=== PATIENT | female | born 1950 | race Caucasian/White ===

== ENCOUNTER → 2016-03-06 | Outpatient (CLI) | payer MEDICARE ==
[2015-10-05 23:40] VITALS: BP 142/64
[~2016-03-06] MED LIST: ASPI81TA2 PO; CALC500T27 PO; CHOL10003 PO; CITA10TA4 PO; CITA20TA9 PO; CRESTOR10 MG PO; CRESTOR20 MG PO; FERR-26 PO; FLUT16SP2 NS; FLUT9.9S NS; HYDR-2666 PO; HYDR-971 PO; IBUP-1060 PO; LISI-338 PO; LISI40TA PO; LORA10CA PO; LORA10TA68 PO; MULT1TAB52 PO; NAPR375T PO; NAPR500T PO; NIAC500T PO; PROAIR HFA8.5 GM IH; ZINC50TA33 PO
--- NOTE | 2016-03-06 13:34 | KCIC ---
Bilateral digital screening mammograms with CAD: HISTORY Routine screening. COMPARISON Comparison is made to previous studies dated 02/21/2014 and 01/13/2013. FINDINGS Breast density category B. The skin and nipples show no abnormalities. No abnormal lymph nodes are seen in the axilla. The breast parenchyma shows scattered fibroglandular density. There continues to be a small circumscribed nodule in the left breast at approximately the 1 o'clock B position and seen best on CC view. This is unchanged. There are no new dominant masses, suspicious calcifications or architectural distortions. IMPRESSION No evidence of malignancy. Recommend routine annual mammographic screening. This study was interpreted with the benefit of Computerized Aided Detection (CAD). Mammography is not 100% sensitive in detecting breast cancer. Therefore, a self breast exam and a clinical breast exam are very important. A negative mammogram does not negate a clinically suspicious finding and should not result in a delay in biopsying a clinically suspicious abnormality. BI-RADS category 2: Benign. This patient's information has been entered into a reminder system for the patient to be notified with the results of this examination and a target date for her next mammograms. Electronically signed by: Coreen José MD (Mar 06, 2016 13:31:47)
--- NOTE | 2016-03-06 16:11 | KCIC ---
PROCEDURE DEXA scan 03/06/2016 HISTORY Postmenopausal female. Risk factors for osteoporosis. TECHNIQUE DEXA the lumbar spine and left hip was performed. FINDINGS The mean bone mineral density of the lumbar spine is 1.491 grams/centimeters squared. This corresponds to a T-score 4.0. This is within normal limits. The mean bone mineral density of the left hip is 1.107 grams/centimeters squared. This corresponds to a T-score of 1.4. This is within normal limits. IMPRESSION The patient's mean bone mineral densities are within normal limits. According to the world health organization (WHO): Normal: T score at or above -1 Osteopenia: T score between -1 and -2.5 Osteoporosis: T score at or below -2.5 Electronically signed by: Kj Calero MD (Mar 06, 2016 16:09:50)
== END | disposition home or self-care (01) ==
LOC: KCIC DEXA 10:42
PROVIDERS: ATTEND Family Medicine
DX: Z12.31 Encounter for screening mammogram for malignant neoplasm of breast (principal); N63 Unspecified lump in breast; Z13.820 Encounter for screening for osteoporosis; N95.9 Unspecified menopausal and perimenopausal disorder
CPT/HCPCS: 77052; 77080; G0202; 77067

== ENCOUNTER 2017-02-10 22:07 | Inpatient (IN) | payer MEDICARE ==
[~2017-02-10] VITALS: Ht 165.1 cm; Wt 90.7 kg
[~2017-02-10 22:07] MED LIST changes: +ASPI-630 PO; -ASPI81TA2 PO; -CALC500T27 PO; +CALC500T30 PO; -HYDR-2666 PO; +HYDR-2758 PO; +NAPR-683 PO; -NAPR500T PO
[2017-02-10 22:52] LABS: BASO % 1 % (0-3); EOS % 5 % (0-3); HEMATOCRIT 42.9 % (36.0-47.0); HEMOGLOBIN 14.1 g/dL (12.0-15.5); LYMPH # 1.3 x10^3/uL (1.0-4.8); LYMPH % 22 % (24-48); MEAN CORPUSCULAR HEMOGLOBIN 30 pg (25-35); MEAN CORPUSCULAR HGB CONC 33 g/dL (31-37); MEAN CORPUSCULAR VOLUME 90 fL (79-100); MONO % 9 % (0-9); NEUT % 63 % (31-73); PLATELET COUNT 187 x10^3/uL (140-400); RED BLOOD COUNT 4.78 x10^6/uL (3.50-5.40); WHITE BLOOD COUNT 6.1 x10^3/uL (4.0-11.0)
[2017-02-10] MEDS ORDERED: MECLIZINE HCL 12.5 MG TABLET. PO ONE (23:00)
[2017-02-10] MEDS ORDERED: ONDANSETRON PF 4 MG/2 ML VIAL. IV ONE (23:00)
--- NOTE | 2017-02-10 23:10 | EKG ---
[facility] [address] [place] [address] Test Date: 2017-02-10 Test Time: 22:56:16 Pat Name: CLINTON BURKS Department: Room: Gender: Female [employer]: : 1950 Requested By: DIA GOMEZ Order Number: [id number] Reading MD: Woo Crocker MD Measurements Intervals [place] Rate: 60 P: 49 MN: 154 QRS: -49 QRSD: 90 T: 28 QT: 400 QTc: 404 Interpretive Statements SINUS RHYTHM ABNORMAL LEFT AXIS DEVIATION NON-SPECIFIC ST/T CHANGES Electronically Signed On 02-17-2017 14:12:38 PRODUCT LISTER by Woo Crocker MD
[2017-02-10 23:11] LABS: CALCIUM 8.9 mg/dL (8.5-10.1); GFR 55.5; POTASSIUM 3.6 mmol/L (3.5-5.1)
[2017-02-10 23:18] LABS: ALBUMIN 3.8 g/dL (3.4-5.0); ALBUMIN/GLOBULIN RATIO 1.2 (1.0-1.7); MAGNESIUM 1.8 mg/dL (1.8-2.4); TOTAL BILIRUBIN 1.1 mg/dL (0.2-1.0); TOTAL PROTEIN 7.1 g/dL (6.4-8.2)
--- NOTE | 2017-02-10 23:25 | RAD ---
CT Head W/O Contrast: History: dizziness today, prior sent Comparison: January 02, 2016 Axial images were obtained without contrast. The borrego and white matter appears normal and symmetrical for the patients age. There is no mass effect, extraaxial fluid collections or hydrocephalus. There is no gross bleed. There is no focal loss of borrego-white matter distinction to suggest acute ischemia, i.e. stroke. Impression: No acute findings. RS Compliance Statement: One or more of the following individualized dose reduction techniques were utilized for this examination: 1. Automated exposure control 2. Adjustment of the mA and/or kV according to patient size 3. Use of iterative reconstruction technique Electronically signed by: Franklin Ramirez III, MD (02/10/2017 11:22 PM) [facility]
[2017-02-10 23:30] LABS: BILIRUBIN,URINE NEGATIVE (NEG); GLUCOSE,URINE NEGATIVE (NEG); NITRITE,URINE NEGATIVE (NEG); PH,URINE 5.5; PROTEIN,URINE NEGATIVE (NEG-TRACE); UROBILINOGEN,URINE 0.2 mg/dL (0.2 mg/dL)
[2017-02-10 23:35] LABS: BACTERIA,URINE FEW /HPF (0-FEW); RBC,URINE 0 /HPF (0-2)
[2017-02-10 23:36] LABS: SQUAMOUS EPITHELIAL CELL,UR MOD /LPF
[2017-02-11] MEDS ORDERED: ONDANSETRON PF 4 MG/2 ML VIAL. IV PRN (02:15)
--- NOTE | 2017-02-11 04:01 | PHYS DOC ---
Past Medical History Past Medical History: Anxiety, Arthritis, Asthma, Bipolar, Bronchitis, Depression, High Cholesterol, Hypertension Additional Past Medical Histor: SLEEP APNEA, VERTIGO, Past Surgical History: , Hysterectomy Alcohol Use: Rarely Drug Use: None Adult General Chief Complaint Chief Complaint: DIZZY/LIGHT HEADED HPI HPI Patient is a 66 year old female presenting to the emergency department for evaluation of sudden onset headache vertigo nausea that started approximately 9 PM. She is unsure of the exact time as she thinks it may have happened earlier while she was eating as she reports having a very large salty meal tonight. Patient says that she has intense room spinning sensation when she moves her head but he gets better when she is laying still she has nausea but no vomiting and she denies any vision changes difficulty speaking or unilateral weakness numbness tingling or other neurologic symptoms. Patient says that she has had vertigo in the past but this feels worse. She is able to ambulate but says that she feels off while she is ambulating. Review of Systems Review of Systems Constitutional: Denies fever or chills [] Eyes: Denies change in visual acuity, redness, or eye pain [] HENT: Denies nasal congestion or sore throat [] Respiratory: Denies cough or shortness of breath [] Cardiovascular: No additional information not addressed in HPI [] GI: Denies abdominal pain. + nausea. No vomiting, bloody stools or diarrhea [] : Denies dysuria or hematuria [] Musculoskeletal: Denies back pain or joint pain [] Integument: Denies rash or skin lesions [] Neurologic: Denies headache, focal weakness. + dizziness sensory changes [] All other systems were reviewed and found to be within normal limits, except as documented in this note. Current Medications Current Medications Current Medications Medications (Trade) Dose Ordered Sig/Niki Start Time Stop Time Status Last Admin Dose Admin Lorazepam (Ativan) 0.5 mg 1X ONCE 02/10/17 23:00 02/10/17 23:01 DC 02/10/17 22:57 0.5 MG Meclizine HCl (Antivert) 25 mg 1X ONCE 02/10/17 23:00 02/10/17 23:01 DC 02/10/17 22:57 25 MG Ondansetron HCl (Zofran) 4 mg PRN Q8HRS PRN 02/11/17 02:15 02/12/17 02:14 Allergies Allergies Allergies Coded Allergies Type Severity Reaction Last Updated Verified corn Allergy Severe Swelling 09/20/15 Yes venom-wasp Allergy Severe Anaphylaxis 09/20/15 Yes Physical Exam Physical Exam Constitutional: Well developed, well nourished, no acute distress, non-toxic appearance. [] HENT: Normocephalic, atraumatic, bilateral external ears normal, oropharynx moist, no oral exudates, nose normal. [] Eyes: PERRLA, EOMI, conjunctiva normal, no discharge. [] Neck: Normal range of motion, no tenderness, supple, no stridor. [] Cardiovascular:Heart rate regular rhythm, no murmur [] Lungs & Thorax: Bilateral breath sounds clear to auscultation [] Abdomen: Bowel sounds normal, soft, no tenderness, no masses, no pulsatile masses. [] Skin: Warm, dry, no erythema, no rash. [] Back: No tenderness, no CVA tenderness. [] Extremities: No tenderness, no cyanosis, no clubbing, ROM intact, no edema. [] Neurologic: Alert and oriented X 3, normal motor function, normal sensory function, no focal deficits noted. Normal finger to nose and heel to gannon testing Current Patient Data Vital Signs Vital Signs Date Time Temp Pulse Resp B/P (MAP) Pulse Ox O2 Delivery O2 Flow Rate FiO2 02/11/17 02:21 56 16 95 02/10/17 22:23 97.7 139/84 (102) Room Air 97.7 Lab Values Laboratory Tests Test 02/10/17 22:35 02/10/17 23:20 White Blood Count 6.1 x10^3/uL (4.0-11.0) Red Blood Count 4.78 x10^6/uL (3.50-5.40) Hemoglobin 14.1 g/dL (12.0-15.5) Hematocrit 42.9 % (36.0-47.0) Mean Corpuscular Volume 90 fL (79-100) Mean Corpuscular Hemoglobin 30 pg (25-35) Mean Corpuscular Hemoglobin Concent 33 g/dL (31-37) Red Cell Distribution Width 14.0 % (11.5-14.5) Platelet Count 187 x10^3/uL (140-400) Neutrophils (%) (Auto) 63 % (31-73) Lymphocytes (%) (Auto) 22 % (24-48) L Monocytes (%) (Auto) 9 % (0-9) Eosinophils (%) (Auto) 5 % (0-3) H Basophils (%) (Auto) 1 % (0-3) Neutrophils # (Auto) 3.9 x10^3uL (1.8-7.7) Lymphocytes # (Auto) 1.3 x10^3/uL (1.0-4.8) Monocytes # (Auto) 0.5 x10^3/uL (0.0-1.1) Eosinophils # (Auto) 0.3 x10^3/uL (0.0-0.7) Basophils # (Auto) 0.0 x10^3/uL (0.0-0.2) Sodium Level 140 mmol/L (136-145) Potassium Level 3.6 mmol/L (3.5-5.1) Chloride Level 101 mmol/L (98-107) Carbon Dioxide Level 31 mmol/L (21-32) Anion Gap 8 (6-14) Blood Urea Nitrogen 25 mg/dL (7-20) H Creatinine 1.0 mg/dL (0.6-1.0) Estimated GFR (Cockcroft-Gault) 55.5 BUN/Creatinine Ratio 25 (6-20) H Glucose Level 111 mg/dL (70-99) H Calcium Level 8.9 mg/dL (8.5-10.1) Magnesium Level 1.8 mg/dL (1.8-2.4) Total Bilirubin 1.1 mg/dL (0.2-1.0) H Aspartate Amino Transferase (AST) 21 U/L (15-37) Alanine Aminotransferase (ALT) 32 U/L (14-59) Alkaline Phosphatase 72 U/L (46-116) Creatine Kinase 141 U/L (26-192) Troponin I Quantitative < 0.017 ng/mL (0.000-0.055) Total Protein 7.1 g/dL (6.4-8.2) Albumin 3.8 g/dL (3.4-5.0) Albumin/Globulin Ratio 1.2 (1.0-1.7) Urine Collection Type Unknown Urine Color Yellow Urine Clarity Clear Urine pH 5.5 Urine Specific [place] 1.025 Urine Protein Negative mg/dL (NEG-TRACE) Urine Glucose (UA) Negative mg/dL (NEG) Urine Ketones (Stick) Negative mg/dL (NEG) Urine Blood Negative (NEG) Urine Nitrite Negative (NEG) Urine Bilirubin Negative (NEG) Urine Urobilinogen Dipstick 0.2 mg/dL (0.2 mg/dL) Urine Leukocyte Esterase Small (NEG) Urine RBC 0 /HPF (0-2) Urine WBC 1-4 /HPF (0-4) Urine Squamous Epithelial Cells Mod /LPF Urine Bacteria Few /HPF (0-FEW) Urine Mucus Mod /LPF Laboratory Tests 02/10/17 22:35 Laboratory Tests 02/10/17 22:35 EKG EKG Sinus rhythm at 60 bpm with leftward axis no obvious ST elevation or depression and normal T waves. Radiology/Procedures Radiology/Procedures CT Head W/O Contrast: History: dizziness today, prior sent Comparison: January 02, 2016 Axial images were obtained without contrast. The borrego and white matter appears normal and symmetrical for the patients age. There is no mass effect, extraaxial fluid collections or hydrocephalus. There is no gross bleed. There is no focal loss of borrego-white matter distinction to suggest acute ischemia, i.e. stroke. Impression: No acute findings. PQRS Compliance Statement: One or more of the following individualized dose reduction techniques were utilized for this examination: 1. Automated exposure control 2. Adjustment of the mA and/or kV according to patient size 3. Use of iterative reconstruction technique Electronically signed by: Vince Burr III, MD (02/10/2017 11:22 PM) [facility] DICTATED and SIGNED BY: VINCE BURR III, MD DATE: 02/10/17 430 Course & Med Decision Making Course & Med Decision Making Patient has classic symptoms for peripheral vertigo in my opinion. Patient was treated aggressively with Zofran and Antivert in addition to Ativan and her vertigo persisted although somewhat improved. Patient had a road test done approximately 4 hours into her emergency department stay and she failed she was still off on her gait. Given patient still has an abnormal neurologic exam and cerebellar ischemia and vertebrobasilar insufficiency have not been ruled out she will be admitted to the hospital for further imaging and neurology consultation. Patient admitted in stable condition. Dragon Disclaimer Dragon Disclaimer This electronic medical record was generated, in whole or in part, using a voice recognition dictation system. Departure Departure Impression: Primary Impression: Vertigo Disposition: ADMITTED INPATIENT Admitting Physician: Xiomara Warren Condition: STABLE Referrals: LUKE SIMS MD (PCP) DIA GOMEZ DO Feb 11, 2017 04:01
[2017-02-11 04:31] VITALS: BP 128/68
[2017-02-11 07:12] VITALS: BP 119/71
[2017-02-11] MEDS ORDERED: HYDROcodone/APAP 5/325MG 1 TAB TABLET PO PRN (10:00)
[2017-02-11] MEDS ORDERED: NON FORMULARY ITEM (Albuterol Sulfate (Proair Hfa Inhaler) 2 PUFF) IH SCH (10:00)
[2017-02-11] MEDS ORDERED: ALBUTEROL SULFATE 2.5 MG/3 ML NEBU. NEB PRN (10:30)
[2017-02-11 10:38] VITALS: BP 147/82
[2017-02-11] MEDS: CETIRIZINE HCL 10 MG TABLET. PO SCH (11:00)
[2017-02-11] MEDS ORDERED: LISINOPRIL 5 MG TABLET. PO SCH (11:00)
--- NOTE | 2017-02-11 11:17 | HP ---
ADMIT DATE: 02/11/2017 CHIEF COMPLAINT: Vertigo. HISTORY OF PRESENT ILLNESS: The patient is a 66-year-old obese woman with heart disease and hypertension, who presented to the Emergency Room with sudden onset of severe dizziness. She relates that after eating supper, she all of a sudden became very dizzy and felt the room is spinning around her, worse with movement. The episode was accompanied by some shortness of breath, chest heaviness in her upper mid chest as well as nausea. As symptoms did not get any better, she presented to the Emergency Room. She denies any vision problems, any headaches, any weakness in her arms or legs. In the Emergency Room, a CT of the head showed no significant findings, and the patient was admitted for further management. PAST MEDICAL HISTORY: CAD, hypertension, hyperlipidemia, asthma. PAST SURGICAL HISTORY: She is status post C-sections and hysterectomy. FAMILY HISTORY: Positive for heart disease. SOCIAL HISTORY: Lives with her . Never smoked, no toxic habits. ALLERGIES: No allergies to drugs. HOME MEDICATIONS: Reconciled with MAR. REVIEW OF SYSTEMS: Positive as per HPI. Rest of organ system review was asked and found negative. PHYSICAL EXAMINATION: VITAL SIGNS: From today show a blood pressure of 119/71, heart rate of 63, respiratory rate at 19. She is afebrile. GENERAL: This is an obese 66-year-old woman, alert and oriented, in no acute distress. HEENT: Shows no scleral icterus. NECK: Supple. LUNGS: Clear. HEART: Regular rate and rhythm without any murmurs. ABDOMEN: Has positive bowel sounds. Morbidly obese. EXTREMITIES: Show no edema. SKIN: Warm, soft and dry. NEUROLOGIC: Benign. There is no nystagmus with head movement or eye movement. LABORATORY DATA: CBC with a WBC of 6.1, hemoglobin 14.1, platelets of 187. Chemistries with a BUN and creatinine of 25 and 1, normal electrolytes, glucose at 111, normal LFTs, with minimally elevated bili at 1.1. Initial troponin was negative. UA negative for infectious signs. IMAGING: CT of the head without any acute findings. ASSESSMENT AND PLAN: The patient is a 66-year-old woman with underlying heart disease, presenting with what appears to be a vertigo. We will obtain a neurology consult. Because of her history as well as some chest heaviness and shortness of breath associated with the episode, I will obtain consult with her equalizer operator, Dr. Horan as well. We will continue all her home medications for the time being. BENITEZ ROMERO MD DR: UR/nts JOB#: [id number] / [id number] LUKE Ortez MD MTDD
[2017-02-11] MEDS: ASPIRIN CHEWABLE 81 MG TABLET. PO SCH (12:33)
[2017-02-11] MEDS: NAPROXEN 500 MG TABLET PO SCH ×2 (12:33→20:17)
[2017-02-11] MEDS: CITALOPRAM 10 MG TABLET. PO SCH (12:34)
[2017-02-11] MEDS: LISINOPRIL 20 MG TABLET PO SCH (12:34)
[2017-02-11] MEDS: FLUTICASONE 50MCG/NASAL SPRAY 16GM BOTTLE. NS SCH (12:35)
[2017-02-11 14:34] VITALS: BP 120/68
[2017-02-11 14:51] LABS: BARBITURATES NEG (NEG); BENZODIAZEPINES NEG (NEG); CANNABINOIDS NEG (NEG); COCAINE NEG (NEG); METHADONE NEG (NEG); OPIATES NEG (NEG); PHENCYCLIDINE NEG (NEG)
[2017-02-11] MEDS: HYDROcodone/APAP 5/325MG 1 TAB TABLET PO PRN (17:26)
--- NOTE | 2017-02-11 18:54 | PDOC2 ---
CONSULT Date of Consult Date of Consult DATE: 02/11/17 TIME: 18:51 Reason for Consult Reason for Consult: Dizziness Referring Physician Referring Physician: Dr. Hutchins Identification/Chief Complaint Chief Complaint Dizziness Problems: History of Present Illness Reason for Visit: The patient is a 66-year-old lady with a known history of hypertension and coronary artery disease. She was sent home and had a rather large meal but then developed all of a sudden everything was spinning in the room she was not she aided and diaphoretic and felt some pain up in the center of the chest. This is very different from previous angina. The patient arrived in the ER and was feeling better but still quite dizzy. At the time that I examine her she is no longer dizzy and has no complaints other than feeling very tired. Past Medical History Cardiovascular: CAD, HTN, Hyperlipidemia Musculoskeletal: Osteoarthritis Current Problem List Problem List Problems Medical Problems: (1) Vertigo Status: Acute Current Medications Current Medications Current Medications Ondansetron HCl (Zofran) 8 mg 1X ONCE IV Last administered on 02/10/17 22:57 ; Start 02/10/17 at 23:00; Stop 02/10/17 at 23:01; Status DC Lorazepam (Ativan) 0.5 mg 1X ONCE IV Last administered on 02/10/17 22:57; Start 02/10/17 at 23:00; Stop 02/10/17 at 23:01; Status DC Meclizine HCl (Antivert) 25 mg 1X ONCE PO Last administered on 02/10/17 22: 57; Start 02/10/17 at 23:00; Stop 02/10/17 at 23:01; Status DC Ondansetron HCl (Zofran) 4 mg PRN Q8HRS PRN IV NAUSEA/VOMITING; Start at 02:15; Stop 02/12/17 at 02:14 Aspirin (Children'S Aspirin) 81 mg DAILY PO Last administered on 02/11/17 12: 33; Start 02/11/17 at 11:00 Citalopram Hydrobromide (CeleXA) 10 mg DAILY PO Last administered on 12:34; Start 02/11/17 at 11:00 Fluticasone Propionate (Flonase) 2 spray DAILY NS Last administered on 12:35; Start 02/11/17 at 11:00 Acetaminophen/ Hydrocodone Bitart (Lortab 5/325) 1 tab PRN Q6HRS PRN PO PAIN Last administered on 02/11/17 17:26; Start 02/11/17 at 10:00 Acetaminophen/ Hydrocodone Bitart (Lortab 5/325) 1 tab PRN Q6HRS PRN PO PAIN; Start 02/11/17 at 10:00; Status UNV Lisinopril (Prinivil) 5 mg [id number] PO ; Start 02/11/17 at 11:00; Stop 02/11/17 at 11:00; Status DC Lisinopril (Prinivil) 40 mg DAILY PO ; Start 02/12/17 at 09:00; Stop 02/12/17 at 09:00; Status DC Naproxen (Naprosyn) 500 mg BID PO Last administered on 02/11/17 12:33; Start 02/11/17 at 11:00 Non-Formulary Medication 2 puff PRN Q4-6HRS IH ; Start 02/11/17 at 10:00; Stop 02/11/17 at 10:36; Status DC Non-Formulary Medication 2 sprays DAILY NS ; Start 02/12/17 at 09:00; Status UNV Atorvastatin Calcium (Lipitor) 40 mg QHS PO ; Start 02/11/17 at 21:00 Cetirizine HCl (ZyrTEC) 10 mg DAILY PO Last administered on 02/11/17 11:00; Start 02/11/17 at 11:00 Albuterol Sulfate (Ventolin Neb Soln) 2.5 mg PRN Q4HRS PRN NEB SHORTNESS OF BREATH; Start 02/11/17 at 10:30 Lisinopril (Prinivil) 20 mg DAILY PO Last administered on 02/11/17 12:34; Start 02/11/17 at 11:00 Active Scripts Active Hydrocodone-Apap 5-325 (Hydrocodone Bit/Acetaminophen) 1 Each Tablet 1 Tab PO PRN Q6HRS PRN Naprosyn (Naproxen) 500 Mg Tablet 500 Mg PO BID Hydrocodone-Apap 5-325 (Hydrocodone Bit/Acetaminophen) 1 Each Tablet 1 Tab PO PRN Q6HRS PRN Reported Aspirin 81 Mg Tab.chew 81 Mg PO Flonase Allergy Relief (Fluticasone Propionate) 9.9 Ml [place].susp 2 Sprays NS DAILY Claritin (Loratadine) 10 Mg Tablet 10 Mg PO Citalopram Hbr (Citalopram Hydrobromide) 10 Mg Tablet 10 Mg PO DAILY Lisinopril 40 Mg Tablet 40 Mg PO DAILY Crestor (Rosuvastatin Calcium) 10 Mg Tablet 1 Tab PO DAILY Proair Hfa Inhaler (Albuterol Sulfate) 8.5 Gm Hfa.aer.ad 2 Puff IH PRN Q4-6HRS Flonase (Fluticasone Propionate) 16 Gm [place].susp 2 [place] NS DAILY Lisinopril 5 Mg Tablet 1 Tab PO [id number] Allergies Allergies: Coded Allergies: corn (Verified Allergy, Severe, Swelling, 09/20/15) [employer] venom-wasp (Verified Allergy, Severe, Anaphylaxis, 09/20/15) Physical Exam General: Alert, Oriented X3, Cooperative HEENT: PERRLA, Other (no nystagmus) Lungs: Clear to auscultation Heart: Regular rate, Normal S1, Normal S2 Abdomen: Normal bowel sounds, Soft Extremities: No edema Psych/Mental Status: Mental status NL Vitals VITALS Vital Signs Date Time Temp Pulse Resp B/P (MAP) Pulse Ox O2 Delivery O2 Flow Rate FiO2 02/11/17 17:26 93 Room Air 02/11/17 14:34 98.4 67 18 120/68 (85) 98.4 Labs Labs Laboratory Tests Test 02/10/17 22:35 02/10/17 23:20 02/11/17 14:25 White Blood Count 6.1 x10^3/uL (4.0-11.0) Red Blood Count 4.78 x10^6/uL (3.50-5.40) Hemoglobin 14.1 g/dL (12.0-15.5) Hematocrit 42.9 % (36.0-47.0) Mean Corpuscular Volume 90 fL (79-100) Mean Corpuscular Hemoglobin 30 pg (25-35) Mean Corpuscular Hemoglobin Concent 33 g/dL (31-37) Red Cell Distribution Width 14.0 % (11.5-14.5) Platelet Count 187 x10^3/uL (140-400) Neutrophils (%) (Auto) 63 % (31-73) Lymphocytes (%) (Auto) 22 % (24-48) Monocytes (%) (Auto) 9 % (0-9) Eosinophils (%) (Auto) 5 % (0-3) Basophils (%) (Auto) 1 % (0-3) Neutrophils # (Auto) 3.9 x10^3uL (1.8-7.7) Lymphocytes # (Auto) 1.3 x10^3/uL (1.0-4.8) Monocytes # (Auto) 0.5 x10^3/uL (0.0-1.1) Eosinophils # (Auto) 0.3 x10^3/uL (0.0-0.7) Basophils # (Auto) 0.0 x10^3/uL (0.0-0.2) Sodium Level 140 mmol/L (136-145) Potassium Level 3.6 mmol/L (3.5-5.1) Chloride Level 101 mmol/L (98-107) Carbon Dioxide Level 31 mmol/L (21-32) Anion Gap 8 (6-14) Blood Urea Nitrogen 25 mg/dL (7-20) Creatinine 1.0 mg/dL (0.6-1.0) Estimated GFR (Cockcroft-Gault) 55.5 BUN/Creatinine Ratio 25 (6-20) Glucose Level 111 mg/dL (70-99) Calcium Level 8.9 mg/dL (8.5-10.1) Magnesium Level 1.8 mg/dL (1.8-2.4) Total Bilirubin 1.1 mg/dL (0.2-1.0) Aspartate Amino Transf (AST/SGOT) 21 U/L (15-37) Alanine Aminotransferase (ALT/SGPT) 32 U/L (14-59) Alkaline Phosphatase 72 U/L (46-116) Creatine Kinase 141 U/L (26-192) Troponin I Quantitative < 0.017 ng/mL (0.000-0.055) Total Protein 7.1 g/dL (6.4-8.2) Albumin 3.8 g/dL (3.4-5.0) Albumin/Globulin Ratio 1.2 (1.0-1.7) Urine Collection Type Unknown Urine Color Yellow Urine Clarity Clear Urine pH 5.5 Urine Specific [place] 1.025 Urine Protein Negative mg/dL (NEG-TRACE) Urine Glucose (UA) Negative mg/dL (NEG) Urine Ketones (Stick) Negative mg/dL (NEG) Urine Blood Negative (NEG) Urine Nitrite Negative (NEG) Urine Bilirubin Negative (NEG) Urine Urobilinogen Dipstick 0.2 mg/dL (0.2 mg/dL) Urine Leukocyte Esterase Small (NEG) Urine RBC 0 /HPF (0-2) Urine WBC 1-4 /HPF (0-4) Urine Squamous Epithelial Cells Mod /LPF Urine Bacteria Few /HPF (0-FEW) Urine Mucus Mod /LPF Urine Opiates Screen Neg (NEG) Urine Methadone Screen Neg (NEG) Urine Barbiturates Neg (NEG) Urine Phencyclidine Screen Neg (NEG) Urine Amphetamine/Methamphetamine Neg (NEG) Urine Benzodiazepines Screen Neg (NEG) Urine Cocaine Screen Neg (NEG) Urine Cannabinoids Screen Neg (NEG) Urine Ethyl Alcohol Neg (NEG) Laboratory Tests Test 02/10/17 22:35 02/10/17 23:20 02/11/17 14:25 White Blood Count 6.1 x10^3/uL (4.0-11.0) Red Blood Count 4.78 x10^6/uL (3.50-5.40) Hemoglobin 14.1 g/dL (12.0-15.5) Hematocrit 42.9 % (36.0-47.0) Mean Corpuscular Volume 90 fL (79-100) Mean Corpuscular Hemoglobin 30 pg (25-35) Mean Corpuscular Hemoglobin Concent 33 g/dL (31-37) Red Cell Distribution Width 14.0 % (11.5-14.5) Platelet Count 187 x10^3/uL (140-400) Neutrophils (%) (Auto) 63 % (31-73) Lymphocytes (%) (Auto) 22 % (24-48) Monocytes (%) (Auto) 9 % (0-9) Eosinophils (%) (Auto) 5 % (0-3) Basophils (%) (Auto) 1 % (0-3) Neutrophils # (Auto) 3.9 x10^3uL (1.8-7.7) Lymphocytes # (Auto) 1.3 x10^3/uL (1.0-4.8) Monocytes # (Auto) 0.5 x10^3/uL (0.0-1.1) Eosinophils # (Auto) 0.3 x10^3/uL (0.0-0.7) Basophils # (Auto) 0.0 x10^3/uL (0.0-0.2) Sodium Level 140 mmol/L (136-145) Potassium Level 3.6 mmol/L (3.5-5.1) Chloride Level 101 mmol/L (98-107) Carbon Dioxide Level 31 mmol/L (21-32) Anion Gap 8 (6-14) Blood Urea Nitrogen 25 mg/dL (7-20) Creatinine 1.0 mg/dL (0.6-1.0) Estimated GFR (Cockcroft-Gault) 55.5 BUN/Creatinine Ratio 25 (6-20) Glucose Level 111 mg/dL (70-99) Calcium Level 8.9 mg/dL (8.5-10.1) Magnesium Level 1.8 mg/dL (1.8-2.4) Total Bilirubin 1.1 mg/dL (0.2-1.0) Aspartate Amino Transf (AST/SGOT) 21 U/L (15-37) Alanine Aminotransferase (ALT/SGPT) 32 U/L (14-59) Alkaline Phosphatase 72 U/L (46-116) Creatine Kinase 141 U/L (26-192) Troponin I Quantitative < 0.017 ng/mL (0.000-0.055) Total Protein 7.1 g/dL (6.4-8.2) Albumin 3.8 g/dL (3.4-5.0) Albumin/Globulin Ratio 1.2 (1.0-1.7) Urine Collection Type Unknown Urine Color Yellow Urine Clarity Clear Urine pH 5.5 Urine Specific [place] 1.025 Urine Protein Negative mg/dL (NEG-TRACE) Urine Glucose (UA) Negative mg/dL (NEG) Urine Ketones (Stick) Negative mg/dL (NEG) Urine Blood Negative (NEG) Urine Nitrite Negative (NEG) Urine Bilirubin Negative (NEG) Urine Urobilinogen Dipstick 0.2 mg/dL (0.2 mg/dL) Urine Leukocyte Esterase Small (NEG) Urine RBC 0 /HPF (0-2) Urine WBC 1-4 /HPF (0-4) Urine Squamous Epithelial Cells Mod /LPF Urine Bacteria Few /HPF (0-FEW) Urine Mucus Mod /LPF Urine Opiates Screen Neg (NEG) Urine Methadone Screen Neg (NEG) Urine Barbiturates Neg (NEG) Urine Phencyclidine Screen Neg (NEG) Urine Amphetamine/Methamphetamine Neg (NEG) Urine Benzodiazepines Screen Neg (NEG) Urine Cocaine Screen Neg (NEG) Urine Cannabinoids Screen Neg (NEG) Urine Ethyl Alcohol Neg (NEG) Assessment/Plan Assessment/Plan This patient appears to come in after an episode of vertigo. From a cardiac standpoint there are no changes in the EKG and her enzymes so far have been negative. I do not think that this is a cardiac event. I will be happy to follow the patient with you. Thank you very much for asking me to participate in the care of this patient. JAYSON FREEMAN MD Feb 11, 2017 18:54
--- NOTE | 2017-02-11 18:54 | PDOC2 ---
NEUROLOGY CONSULT Date of Admission Date of Admission DATE: 02/11/17 TIME: 18:21 Reason for Consult Reason for Consult: IMPRESSION: Sudden onset dizziness, headache, ataxia, vomiting on 02/10. HTN HLD BERNARDO Obesity. RECOMMENDATIONS/PLAN: ASA daily. Lipitor HS. Brain MRI w/o contrast. Lab: see orders. Treat medical diseases. HISTORY OF THE PRESENT ILLNESS: 66-y-old female patient with above medical diseases had a big dinner over eating on 02/10. She suddenly developed symptoms of dizziness, vertigo, headache, vomiting, unsteadiness, ataxia, off balance to come to the ER on . She stated she had 2 episodes of vertigo in the past 2 years and the 2nd one was several months early but nothing like this severe with more symptoms. PAST MEDICAL HISTORY: CAD, hypertension, hyperlipidemia, asthma. PAST SURGICAL HISTORY: C-sections and hysterectomy. FAMILY HISTORY: Heart disease. SOCIAL HISTORY: Lives with her . Never smoked, no toxic habits. ALLERGIES: NKDA. MEDICATIONS: Refer to MAR REVIEW OF SYSTEMS: Constitutional: Obesity. Head: No recent traumatic brain or head injury. Skin: No edema, or rash. Ear: No infection. Eyes: No vision loss or color blindness. Nose: No bleeding or purulent discharges. Hearing: No hearing decrease. Neck: No injury. Breast: No history of cancer, masses,or discharges. Cardiac: HTN, HLD. Pulmonary: No COPD. GI: No GI ulcer, GI bleeding. Urinary/genital: UTI. Endocrinologic: Obesity. Skeletomuscular: No muscular atrophy, deformity. Neurological: see HP. Psychiatric: Denies drug use/abuse. Otherwise, not [id number] review of systems. PHYSICAL EXAMINATION: General appearance is in subacute distress. HEENT: Normocephalic and nontraumatic. Eyes, nose, ears, and throat are unremarkable. Neck is supple. No lymphadenopathy. No bruits are heard over the carotid artery. No crepitus. Cardiovascular: S1, S2, regular rate and rhythm. Pulmonary: Clear to auscultation bilaterally. Abdomen: Bowel sounds are positive. Abdomen is soft, nontender, and nondistended. Extremities: No rash, lesions, or edema. No restriction of range of motion NEUROLOGICAL EXAMINATION: Awake. Oriented to time, place and person. PERRL. EOMI. CN: no focal findings. Muscle tone: within normal. Muscle strength: 4+ DTR: 1 Plantar reflex: Flexor response bilaterally Gait: not examined in bed. Sensory exam: no abnormal findings. No definitive acute cerebellar signs elicited. But F-T-N test seemed not very accurate.. Current Medications Current Medications Current Medications Ondansetron HCl (Zofran) 8 mg 1X ONCE IV Last administered on 02/10/17 22:57 ; Start 02/10/17 at 23:00; Stop 02/10/17 at 23:01; Status DC Lorazepam (Ativan) 0.5 mg 1X ONCE IV Last administered on 02/10/17 22:57; Start 02/10/17 at 23:00; Stop 02/10/17 at 23:01; Status DC Meclizine HCl (Antivert) 25 mg 1X ONCE PO Last administered on 02/10/17 22: 57; Start 02/10/17 at 23:00; Stop 02/10/17 at 23:01; Status DC Ondansetron HCl (Zofran) 4 mg PRN Q8HRS PRN IV NAUSEA/VOMITING; Start at 02:15; Stop 02/12/17 at 02:14 Aspirin (Children'S Aspirin) 81 mg DAILY PO Last administered on 02/11/17 12: 33; Start 02/11/17 at 11:00 Citalopram Hydrobromide (CeleXA) 10 mg DAILY PO Last administered on 12:34; Start 02/11/17 at 11:00 Fluticasone Propionate (Flonase) 2 spray DAILY NS Last administered on 12:35; Start 02/11/17 at 11:00 Acetaminophen/ Hydrocodone Bitart (Lortab 5/325) 1 tab PRN Q6HRS PRN PO PAIN Last administered on 02/11/17 17:26; Start 02/11/17 at 10:00 Acetaminophen/ Hydrocodone Bitart (Lortab 5/325) 1 tab PRN Q6HRS PRN PO PAIN; Start 02/11/17 at 10:00; Status UNV Lisinopril (Prinivil) 5 mg BID76 PO ; Start 02/11/17 at 11:00; Stop 02/11/17 at 11:00; Status DC Lisinopril (Prinivil) 40 mg DAILY PO ; Start 02/12/17 at 09:00; Stop 02/12/17 at 09:00; Status DC Naproxen (Naprosyn) 500 mg BID PO Last administered on 02/11/17 12:33; Start 02/11/17 at 11:00 Non-Formulary Medication 2 puff PRN Q4-6HRS IH ; Start 02/11/17 at 10:00; Stop 02/11/17 at 10:36; Status DC Non-Formulary Medication 2 sprays DAILY NS ; Start 02/12/17 at 09:00; Status UNV Atorvastatin Calcium (Lipitor) 40 mg QHS PO ; Start 02/11/17 at 21:00 Cetirizine HCl (ZyrTEC) 10 mg DAILY PO Last administered on 02/11/17 11:00; Start 02/11/17 at 11:00 Albuterol Sulfate (Ventolin Neb Soln) 2.5 mg PRN Q4HRS PRN NEB SHORTNESS OF BREATH; Start 02/11/17 at 10:30 Lisinopril (Prinivil) 20 mg DAILY PO Last administered on 02/11/17 12:34; Start 02/11/17 at 11:00 Active Scripts Active Hydrocodone-Apap 5-325 (Hydrocodone Bit/Acetaminophen) 1 Each Tablet 1 Tab PO PRN Q6HRS PRN Naprosyn (Naproxen) 500 Mg Tablet 500 Mg PO BID Hydrocodone-Apap 5-325 (Hydrocodone Bit/Acetaminophen) 1 Each Tablet 1 Tab PO PRN Q6HRS PRN Reported Aspirin 81 Mg Tab.chew 81 Mg PO Flonase Allergy Relief (Fluticasone Propionate) 9.9 Ml Caney.susp 2 Sprays NS DAILY Claritin (Loratadine) 10 Mg Tablet 10 Mg PO Citalopram Hbr (Citalopram Hydrobromide) 10 Mg Tablet 10 Mg PO DAILY Lisinopril 40 Mg Tablet 40 Mg PO DAILY Crestor (Rosuvastatin Calcium) 10 Mg Tablet 1 Tab PO DAILY Proair Hfa Inhaler (Albuterol Sulfate) 8.5 Gm Hfa.aer.ad 2 Puff IH PRN Q4-6HRS Flonase (Fluticasone Propionate) 16 Gm Caney.susp 2 Caney NS DAILY Lisinopril 5 Mg Tablet 1 Tab PO [id number] Allergies Allergies: Coded Allergies: corn (Verified Allergy, Severe, Swelling, 09/20/15) PROCESSED CORN PRODUCTS venom-wasp (Verified Allergy, Severe, Anaphylaxis, 09/20/15) Vitals VITALS Vital Signs Date Time Temp Pulse Resp B/P (MAP) Pulse Ox O2 Delivery O2 Flow Rate FiO2 02/11/17 17:26 93 Room Air 02/11/17 14:34 98.4 67 18 120/68 (85) 98.4 Labs Labs Laboratory Tests Test 02/10/17 22:35 02/10/17 23:20 02/11/17 14:25 White Blood Count 6.1 x10^3/uL (4.0-11.0) Red Blood Count 4.78 x10^6/uL (3.50-5.40) Hemoglobin 14.1 g/dL (12.0-15.5) Hematocrit 42.9 % (36.0-47.0) Mean Corpuscular Volume 90 fL (79-100) Mean Corpuscular Hemoglobin 30 pg (25-35) Mean Corpuscular Hemoglobin Concent 33 g/dL (31-37) Red Cell Distribution Width 14.0 % (11.5-14.5) Platelet Count 187 x10^3/uL (140-400) Neutrophils (%) (Auto) 63 % (31-73) Lymphocytes (%) (Auto) 22 % (24-48) Monocytes (%) (Auto) 9 % (0-9) Eosinophils (%) (Auto) 5 % (0-3) Basophils (%) (Auto) 1 % (0-3) Neutrophils # (Auto) 3.9 x10^3uL (1.8-7.7) Lymphocytes # (Auto) 1.3 x10^3/uL (1.0-4.8) Monocytes # (Auto) 0.5 x10^3/uL (0.0-1.1) Eosinophils # (Auto) 0.3 x10^3/uL (0.0-0.7) Basophils # (Auto) 0.0 x10^3/uL (0.0-0.2) Sodium Level 140 mmol/L (136-145) Potassium Level 3.6 mmol/L (3.5-5.1) Chloride Level 101 mmol/L (98-107) Carbon Dioxide Level 31 mmol/L (21-32) Anion Gap 8 (6-14) Blood Urea Nitrogen 25 mg/dL (7-20) Creatinine 1.0 mg/dL (0.6-1.0) Estimated GFR (Cockcroft-Gault) 55.5 BUN/Creatinine Ratio 25 (6-20) Glucose Level 111 mg/dL (70-99) Calcium Level 8.9 mg/dL (8.5-10.1) Magnesium Level 1.8 mg/dL (1.8-2.4) Total Bilirubin 1.1 mg/dL (0.2-1.0) Aspartate Amino Transf (AST/SGOT) 21 U/L (15-37) Alanine Aminotransferase (ALT/SGPT) 32 U/L (14-59) Alkaline Phosphatase 72 U/L (46-116) Creatine Kinase 141 U/L (26-192) Troponin I Quantitative < 0.017 ng/mL (0.000-0.055) Total Protein 7.1 g/dL (6.4-8.2) Albumin 3.8 g/dL (3.4-5.0) Albumin/Globulin Ratio 1.2 (1.0-1.7) Urine Collection Type Unknown Urine Color Yellow Urine Clarity Clear Urine pH 5.5 Urine Specific [place] 1.025 Urine Protein Negative mg/dL (NEG-TRACE) Urine Glucose (UA) Negative mg/dL (NEG) Urine Ketones (Stick) Negative mg/dL (NEG) Urine Blood Negative (NEG) Urine Nitrite Negative (NEG) Urine Bilirubin Negative (NEG) Urine Urobilinogen Dipstick 0.2 mg/dL (0.2 mg/dL) Urine Leukocyte Esterase Small (NEG) Urine RBC 0 /HPF (0-2) Urine WBC 1-4 /HPF (0-4) Urine Squamous Epithelial Cells Mod /LPF Urine Bacteria Few /HPF (0-FEW) Urine Mucus Mod /LPF Urine Opiates Screen Neg (NEG) Urine Methadone Screen Neg (NEG) Urine Barbiturates Neg (NEG) Urine Phencyclidine Screen Neg (NEG) Urine Amphetamine/Methamphetamine Neg (NEG) Urine Benzodiazepines Screen Neg (NEG) Urine Cocaine Screen Neg (NEG) Urine Cannabinoids Screen Neg (NEG) Urine Ethyl Alcohol Neg (NEG) Laboratory Tests Test 02/10/17 22:35 02/10/17 23:20 02/11/17 14:25 White Blood Count 6.1 x10^3/uL (4.0-11.0) Red Blood Count 4.78 x10^6/uL (3.50-5.40) Hemoglobin 14.1 g/dL (12.0-15.5) Hematocrit 42.9 % (36.0-47.0) Mean Corpuscular Volume 90 fL (79-100) Mean Corpuscular Hemoglobin 30 pg (25-35) Mean Corpuscular Hemoglobin Concent 33 g/dL (31-37) Red Cell Distribution Width 14.0 % (11.5-14.5) Platelet Count 187 x10^3/uL (140-400) Neutrophils (%) (Auto) 63 % (31-73) Lymphocytes (%) (Auto) 22 % (24-48) Monocytes (%) (Auto) 9 % (0-9) Eosinophils (%) (Auto) 5 % (0-3) Basophils (%) (Auto) 1 % (0-3) Neutrophils # (Auto) 3.9 x10^3uL (1.8-7.7) Lymphocytes # (Auto) 1.3 x10^3/uL (1.0-4.8) Monocytes # (Auto) 0.5 x10^3/uL (0.0-1.1) Eosinophils # (Auto) 0.3 x10^3/uL (0.0-0.7) Basophils # (Auto) 0.0 x10^3/uL (0.0-0.2) Sodium Level 140 mmol/L (136-145) Potassium Level 3.6 mmol/L (3.5-5.1) Chloride Level 101 mmol/L (98-107) Carbon Dioxide Level 31 mmol/L (21-32) Anion Gap 8 (6-14) Blood Urea Nitrogen 25 mg/dL (7-20) Creatinine 1.0 mg/dL (0.6-1.0) Estimated GFR (Cockcroft-Gault) 55.5 BUN/Creatinine Ratio 25 (6-20) Glucose Level 111 mg/dL (70-99) Calcium Level 8.9 mg/dL (8.5-10.1) Magnesium Level 1.8 mg/dL (1.8-2.4) Total Bilirubin 1.1 mg/dL (0.2-1.0) Aspartate Amino Transf (AST/SGOT) 21 U/L (15-37) Alanine Aminotransferase (ALT/SGPT) 32 U/L (14-59) Alkaline Phosphatase 72 U/L (46-116) Creatine Kinase 141 U/L (26-192) Troponin I Quantitative < 0.017 ng/mL (0.000-0.055) Total Protein 7.1 g/dL (6.4-8.2) Albumin 3.8 g/dL (3.4-5.0) Albumin/Globulin Ratio 1.2 (1.0-1.7) Urine Collection Type Unknown Urine Color Yellow Urine Clarity Clear Urine pH 5.5 Urine Specific [place] 1.025 Urine Protein Negative mg/dL (NEG-TRACE) Urine Glucose (UA) Negative mg/dL (NEG) Urine Ketones (Stick) Negative mg/dL (NEG) Urine Blood Negative (NEG) Urine Nitrite Negative (NEG) Urine Bilirubin Negative (NEG) Urine Urobilinogen Dipstick 0.2 mg/dL (0.2 mg/dL) Urine Leukocyte Esterase Small (NEG) Urine RBC 0 /HPF (0-2) Urine WBC 1-4 /HPF (0-4) Urine Squamous Epithelial Cells Mod /LPF Urine Bacteria Few /HPF (0-FEW) Urine Mucus Mod /LPF Urine Opiates Screen Neg (NEG) Urine Methadone Screen Neg (NEG) Urine Barbiturates Neg (NEG) Urine Phencyclidine Screen Neg (NEG) Urine Amphetamine/Methamphetamine Neg (NEG) Urine Benzodiazepines Screen Neg (NEG) Urine Cocaine Screen Neg (NEG) Urine Cannabinoids Screen Neg (NEG) Urine Ethyl Alcohol Neg (NEG) DADA VILLA MD Feb 11, 2017 18:54
[2017-02-11 19:38] VITALS: BP 114/65
[2017-02-11] MEDS: ATORVASTATIN CALCIUM 40 MG TABLET. PO SCH (20:14)
[2017-02-11 23:39] VITALS: BP 125/63
[2017-02-12 03:59] VITALS: BP 107/62
[2017-02-12 06:00] LABS: CALCIUM 8.2 mg/dL (8.5-10.1); CREATININE 0.8 mg/dL (0.6-1.0); GFR 71.8; POTASSIUM 4.7 mmol/L (3.5-5.1)
[2017-02-12 07:15] VITALS: BP 128/76
[2017-02-12 08:29] LABS: BASO % 1 % (0-3); EOS % 7 % (0-3); HEMATOCRIT 41.9 % (36.0-47.0); HEMOGLOBIN 13.7 g/dL (12.0-15.5); LYMPH # 1.2 x10^3/uL (1.0-4.8); LYMPH % 25 % (24-48); MEAN CORPUSCULAR HEMOGLOBIN 30 pg (25-35); MEAN CORPUSCULAR HGB CONC 33 g/dL (31-37); MEAN CORPUSCULAR VOLUME 90 fL (79-100); MONO % 9 % (0-9); NEUT % 59 % (31-73); PLATELET COUNT 160 x10^3/uL (140-400); RED BLOOD COUNT 4.64 x10^6/uL (3.50-5.40); RED CELL DISTRIBUTION WIDTH 14.1 % (11.5-14.5)
[2017-02-12] MEDS: CITALOPRAM 10 MG TABLET. PO SCH (08:48)
[2017-02-12] MEDS: ASPIRIN CHEWABLE 81 MG TABLET. PO SCH (08:48)
[2017-02-12] MEDS: CETIRIZINE HCL 10 MG TABLET. PO SCH (08:48)
[2017-02-12] MEDS: NAPROXEN 500 MG TABLET PO SCH ×2 (08:49→20:14)
[2017-02-12] MEDS: LISINOPRIL 20 MG TABLET PO SCH (08:50)
[2017-02-12] MEDS: FLUTICASONE 50MCG/NASAL SPRAY 16GM BOTTLE. NS SCH (08:51)
[2017-02-12] MEDS ORDERED: LISINOPRIL 40 MG TABLET. PO SCH (09:00)
[2017-02-12] MEDS ORDERED: NON FORMULARY ITEM (Fluticasone Propionate (Flonase Allergy Relief) 2 SPRAYS) NS SCH (09:00)
[2017-02-12 10:32] VITALS: BP 135/62
--- NOTE | 2017-02-12 12:09 | PDOC ---
PROGRESS NOTES Chief Complaint Chief Complaint Vertigo ASSESSMENT AND PLAN: 1. Dizziness: sl improved. appreciate Dr Razo's input. MRI brain pending. 2. CAD: stable. cont 2ary prevention meds. appreciate Dr Horan' input. 3. HTN well controlled on home meds 4. Prophylaxis: H2B, lovenox History of Present Illness History of Present Illness dizziness better, but very weak, fatigued Vitals Vitals Vital Signs Date Time Temp Pulse Resp B/P (MAP) Pulse Ox O2 Delivery O2 Flow Rate FiO2 02/12/17 10:32 97.4 79 18 135/62 (86) 93 Room Air 97.4 Physical Exam General: Alert, Oriented X3, Cooperative Heart: Regular rate Abdomen: Normal bowel sounds, Soft, No tenderness Extremities: No edema Labs LABS Laboratory Tests Test 02/11/17 14:25 02/12/17 05:05 02/12/17 08:10 Urine Opiates Screen Neg (NEG) Urine Methadone Screen Neg (NEG) Urine Barbiturates Neg (NEG) Urine Phencyclidine Screen Neg (NEG) Urine Amphetamine/Methamphetamine Neg (NEG) Urine Benzodiazepines Screen Neg (NEG) Urine Cocaine Screen Neg (NEG) Urine Cannabinoids Screen Neg (NEG) Urine Ethyl Alcohol Neg (NEG) Sodium Level 139 mmol/L (136-145) Potassium Level 4.7 mmol/L (3.5-5.1) Chloride Level 104 mmol/L (98-107) Carbon Dioxide Level 24 mmol/L (21-32) Anion Gap 11 (6-14) Blood Urea Nitrogen 21 mg/dL (7-20) Creatinine 0.8 mg/dL (0.6-1.0) Estimated GFR (Cockcroft-Gault) 71.8 Glucose Level 96 mg/dL (70-99) Calcium Level 8.2 mg/dL (8.5-10.1) White Blood Count 5.0 x10^3/uL (4.0-11.0) Red Blood Count 4.64 x10^6/uL (3.50-5.40) Hemoglobin 13.7 g/dL (12.0-15.5) Hematocrit 41.9 % (36.0-47.0) Mean Corpuscular Volume 90 fL (79-100) Mean Corpuscular Hemoglobin 30 pg (25-35) Mean Corpuscular Hemoglobin Concent 33 g/dL (31-37) Red Cell Distribution Width 14.1 % (11.5-14.5) Platelet Count 160 x10^3/uL (140-400) Neutrophils (%) (Auto) 59 % (31-73) Lymphocytes (%) (Auto) 25 % (24-48) Monocytes (%) (Auto) 9 % (0-9) Eosinophils (%) (Auto) 7 % (0-3) Basophils (%) (Auto) 1 % (0-3) Neutrophils # (Auto) 2.9 x10^3uL (1.8-7.7) Lymphocytes # (Auto) 1.2 x10^3/uL (1.0-4.8) Monocytes # (Auto) 0.5 x10^3/uL (0.0-1.1) Eosinophils # (Auto) 0.3 x10^3/uL (0.0-0.7) Basophils # (Auto) 0.0 x10^3/uL (0.0-0.2) BENITEZ ROMERO MD Feb 12, 2017 12:09
[2017-02-12] MEDS: FAMOTIDINE 20 MG TABLET. PO SCH ×2 (12:30→20:15)
[2017-02-12] MEDS: ENOXAPARIN 40 MG/0.4 ML SYRINGE. SQ SCH (13:00)
--- NOTE | 2017-02-12 14:07 | RAD ---
MRI Brain without contrast History: Sudden onset dizziness and weakness and vomiting, off balance, tremors, headache Technique: Multiplanar, multisequential noncontrast MR imaging was performed of the brain. Contrast: None Comparison: None Findings: There is no evidence of recent infarct or cytotoxic edema. The ventricles, sulci, and cisterns are within normal limits in size and configuration. There is no significant midline shift, intraaxial mass effect, or focal abnormal extra-axial fluid collection. There are multiple scattered small foci of T2 and FLAIR hyperintense abnormality of the supratentorial white matter in a bilateral distribution. Focus of the left frontal lobe has a somewhat perpendicular orientation relative to the lateral ventricle. There is preservation of the major intracranial flow-voids at the skull base. The mastoid air cells are aerated. The cerebellar tonsils are normal in location. There is no significant abnormality of the pineal gland or pituitary gland. There is minimal bilateral ethmoid air cell mucosal thickening. There is nonspecific mild heterogeneity of the marrow of the nonexpanded clivus. Impression: 1. There is no evidence of recent infarct or intracranial mass effect. Scattered T2 and FLAIR hyperintense abnormality of the supratentorial white matter bilaterally is nonspecific. Findings could be due to chronic microvascular ischemic disease especially if history of hypertension or diabetes. Sequela of an inflammatory demyelinating disease is not excluded. Electronically signed by: Celio Cunningham MD (02/12/2017 2:04 PM) [id number]
[2017-02-12 14:41] VITALS: BP 124/72
--- NOTE | 2017-02-12 15:27 | PDOC ---
PROGRESS NOTES Subjective Subjective No cardiac complaints Pt in sinus rhythm Objective Objective Vital Signs Date Time Temp Pulse Resp B/P (MAP) Pulse Ox O2 Delivery O2 Flow Rate FiO2 02/12/17 14:41 98.0 69 18 124/72 (89) 95 Room Air 98.0 Intake and Output 02/12/17 07:00 Intake Total 1200 ml Balance 1200 ml Intake Oral 1200 ml # Voids 8 Physical Exam Physical Exam No significant changes in cardiac exam Assessment Assessment Pt compensated and stable cardiac dejesus Problems Medical Problems: (1) Vertigo Status: Acute Comment Review of Relevant I have reviewed the following items steffi (where applicable) has been applied. Labs Laboratory Tests Test 02/10/17 22:35 02/10/17 23:20 02/11/17 14:25 02/12/17 05:05 White Blood Count 6.1 x10^3/uL (4.0-11.0) Red Blood Count 4.78 x10^6/uL (3.50-5.40) Hemoglobin 14.1 g/dL (12.0-15.5) Hematocrit 42.9 % (36.0-47.0) Mean Corpuscular Volume 90 fL (79-100) Mean Corpuscular Hemoglobin 30 pg (25-35) Mean Corpuscular Hemoglobin Concent 33 g/dL (31-37) Red Cell Distribution Width 14.0 % (11.5-14.5) Platelet Count 187 x10^3/uL (140-400) Neutrophils (%) (Auto) 63 % (31-73) Lymphocytes (%) (Auto) 22 % (24-48) Monocytes (%) (Auto) 9 % (0-9) Eosinophils (%) (Auto) 5 % (0-3) Basophils (%) (Auto) 1 % (0-3) Neutrophils # (Auto) 3.9 x10^3uL (1.8-7.7) Lymphocytes # (Auto) 1.3 x10^3/uL (1.0-4.8) Monocytes # (Auto) 0.5 x10^3/uL (0.0-1.1) Eosinophils # (Auto) 0.3 x10^3/uL (0.0-0.7) Basophils # (Auto) 0.0 x10^3/uL (0.0-0.2) Sodium Level 140 mmol/L (136-145) 139 mmol/L (136-145) Potassium Level 3.6 mmol/L (3.5-5.1) 4.7 mmol/L (3.5-5.1) Chloride Level 101 mmol/L (98-107) 104 mmol/L (98-107) Carbon Dioxide Level 31 mmol/L (21-32) 24 mmol/L (21-32) Anion Gap 8 (6-14) 11 (6-14) Blood Urea Nitrogen 25 mg/dL (7-20) 21 mg/dL (7-20) Creatinine 1.0 mg/dL (0.6-1.0) 0.8 mg/dL (0.6-1.0) Estimated GFR (Cockcroft-Gault) 55.5 71.8 BUN/Creatinine Ratio 25 (6-20) Glucose Level 111 mg/dL (70-99) 96 mg/dL (70-99) Calcium Level 8.9 mg/dL (8.5-10.1) 8.2 mg/dL (8.5-10.1) Magnesium Level 1.8 mg/dL (1.8-2.4) Total Bilirubin 1.1 mg/dL (0.2-1.0) Aspartate Amino Transf (AST/SGOT) 21 U/L (15-37) Alanine Aminotransferase (ALT/SGPT) 32 U/L (14-59) Alkaline Phosphatase 72 U/L (46-116) Creatine Kinase 141 U/L (26-192) Troponin I Quantitative < 0.017 ng/mL (0.000-0.055) Total Protein 7.1 g/dL (6.4-8.2) Albumin 3.8 g/dL (3.4-5.0) Albumin/Globulin Ratio 1.2 (1.0-1.7) Urine Collection Type Unknown Urine Color Yellow Urine Clarity Clear Urine pH 5.5 Urine Specific [place] 1.025 Urine Protein Negative mg/dL (NEG-TRACE) Urine Glucose (UA) Negative mg/dL (NEG) Urine Ketones (Stick) Negative mg/dL (NEG) Urine Blood Negative (NEG) Urine Nitrite Negative (NEG) Urine Bilirubin Negative (NEG) Urine Urobilinogen Dipstick 0.2 mg/dL (0.2 mg/dL) Urine Leukocyte Esterase Small (NEG) Urine RBC 0 /HPF (0-2) Urine WBC 1-4 /HPF (0-4) Urine Squamous Epithelial Cells Mod /LPF Urine Bacteria Few /HPF (0-FEW) Urine Mucus Mod /LPF Urine Opiates Screen Neg (NEG) Urine Methadone Screen Neg (NEG) Urine Barbiturates Neg (NEG) Urine Phencyclidine Screen Neg (NEG) Urine Amphetamine/Methamphetamine Neg (NEG) Urine Benzodiazepines Screen Neg (NEG) Urine Cocaine Screen Neg (NEG) Urine Cannabinoids Screen Neg (NEG) Urine Ethyl Alcohol Neg (NEG) Test 02/12/17 08:10 White Blood Count 5.0 x10^3/uL (4.0-11.0) Red Blood Count 4.64 x10^6/uL (3.50-5.40) Hemoglobin 13.7 g/dL (12.0-15.5) Hematocrit 41.9 % (36.0-47.0) Mean Corpuscular Volume 90 fL (79-100) Mean Corpuscular Hemoglobin 30 pg (25-35) Mean Corpuscular Hemoglobin Concent 33 g/dL (31-37) Red Cell Distribution Width 14.1 % (11.5-14.5) Platelet Count 160 x10^3/uL (140-400) Neutrophils (%) (Auto) 59 % (31-73) Lymphocytes (%) (Auto) 25 % (24-48) Monocytes (%) (Auto) 9 % (0-9) Eosinophils (%) (Auto) 7 % (0-3) Basophils (%) (Auto) 1 % (0-3) Neutrophils # (Auto) 2.9 x10^3uL (1.8-7.7) Lymphocytes # (Auto) 1.2 x10^3/uL (1.0-4.8) Monocytes # (Auto) 0.5 x10^3/uL (0.0-1.1) Eosinophils # (Auto) 0.3 x10^3/uL (0.0-0.7) Basophils # (Auto) 0.0 x10^3/uL (0.0-0.2) Laboratory Tests Test 02/12/17 05:05 02/12/17 08:10 Sodium Level 139 mmol/L (136-145) Potassium Level 4.7 mmol/L (3.5-5.1) Chloride Level 104 mmol/L (98-107) Carbon Dioxide Level 24 mmol/L (21-32) Anion Gap 11 (6-14) Blood Urea Nitrogen 21 mg/dL (7-20) Creatinine 0.8 mg/dL (0.6-1.0) Estimated GFR (Cockcroft-Gault) 71.8 Glucose Level 96 mg/dL (70-99) Calcium Level 8.2 mg/dL (8.5-10.1) White Blood Count 5.0 x10^3/uL (4.0-11.0) Red Blood Count 4.64 x10^6/uL (3.50-5.40) Hemoglobin 13.7 g/dL (12.0-15.5) Hematocrit 41.9 % (36.0-47.0) Mean Corpuscular Volume 90 fL (79-100) Mean Corpuscular Hemoglobin 30 pg (25-35) Mean Corpuscular Hemoglobin Concent 33 g/dL (31-37) Red Cell Distribution Width 14.1 % (11.5-14.5) Platelet Count 160 x10^3/uL (140-400) Neutrophils (%) (Auto) 59 % (31-73) Lymphocytes (%) (Auto) 25 % (24-48) Monocytes (%) (Auto) 9 % (0-9) Eosinophils (%) (Auto) 7 % (0-3) Basophils (%) (Auto) 1 % (0-3) Neutrophils # (Auto) 2.9 x10^3uL (1.8-7.7) Lymphocytes # (Auto) 1.2 x10^3/uL (1.0-4.8) Monocytes # (Auto) 0.5 x10^3/uL (0.0-1.1) Eosinophils # (Auto) 0.3 x10^3/uL (0.0-0.7) Basophils # (Auto) 0.0 x10^3/uL (0.0-0.2) Microbiology 02/10/17 Urine Culture - Preliminary, Resulted 02/10/17 Urine Culture Result 1 (MARY) - Preliminary, Resulted Medications Current Medications Ondansetron HCl (Zofran) 8 mg 1X ONCE IV Last administered on 02/10/17t 22:57 ; Start 02/10/17 at 23:00; Stop 02/10/17 at 23:01; Status DC Lorazepam (Ativan) 0.5 mg 1X ONCE IV Last administered on 02/10/17 22:57; Start 02/10/17 at 23:00; Stop 02/10/17 at 23:01; Status DC Meclizine HCl (Antivert) 25 mg 1X ONCE PO Last administered on 02/10/17 22: 57; Start 02/10/17 at 23:00; Stop 02/10/17 at 23:01; Status DC Ondansetron HCl (Zofran) 4 mg PRN Q8HRS PRN IV NAUSEA/VOMITING; Start at 02:15; Stop 02/12/17 at 02:14; Status DC Aspirin (Children'S Aspirin) 81 mg DAILY PO Last administered on 02/12/17 08: 48; Start 02/11/17 at 11:00 Citalopram Hydrobromide (CeleXA) 10 mg DAILY PO Last administered on 08:48; Start 02/11/17 at 11:00 Fluticasone Propionate (Flonase) 2 spray DAILY NS Last administered on 08:51; Start 02/11/17 at 11:00 Acetaminophen/ Hydrocodone Bitart (Lortab 5/325) 1 tab PRN Q6HRS PRN PO PAIN Last administered on 02/11/17 17:26; Start 02/11/17 at 10:00 Acetaminophen/ Hydrocodone Bitart (Lortab 5/325) 1 tab PRN Q6HRS PRN PO PAIN; Start 02/11/17 at 10:00; Status UNV Lisinopril (Prinivil) 5 mg [id number] PO ; Start 02/11/17 at 11:00; Stop 02/11/17 at 11:00; Status DC Lisinopril (Prinivil) 40 mg DAILY PO ; Start 02/12/17 at 09:00; Stop 02/12/17 at 09:00; Status DC Naproxen (Naprosyn) 500 mg BID PO Last administered on 02/12/17 08:49; Start 02/11/17 at 11:00 Non-Formulary Medication 2 puff PRN Q4-6HRS IH ; Start 02/11/17 at 10:00; Stop 02/11/17 at 10:36; Status DC Non-Formulary Medication 2 sprays DAILY NS ; Start 02/12/17 at 09:00; Status UNV Atorvastatin Calcium (Lipitor) 40 mg QHS PO Last administered on 02/11/17 20: 14; Start 02/11/17 at 21:00 Cetirizine HCl (ZyrTEC) 10 mg DAILY PO Last administered on 02/12/17 08:48; Start 02/11/17 at 11:00 Albuterol Sulfate (Ventolin Neb Soln) 2.5 mg PRN Q4HRS PRN NEB SHORTNESS OF BREATH Last administered on 02/12/17 09:47; Start 02/11/17 at 10:30 Lisinopril (Prinivil) 20 mg DAILY PO Last administered on 02/12/17 08:50; Start 02/11/17 at 11:00 Famotidine (Pepcid) 20 mg BID PO ; Start 02/12/17 at 12:30 Enoxaparin Sodium (Lovenox 40mg Syringe) 40 mg Q24H SQ ; Start 02/12/17 at 13: 00 Active Scripts Active Hydrocodone-Apap 5-325 (Hydrocodone Bit/Acetaminophen) 1 Each Tablet 1 Tab PO PRN Q6HRS PRN Naprosyn (Naproxen) 500 Mg Tablet 500 Mg PO BID Hydrocodone-Apap 5-325 (Hydrocodone Bit/Acetaminophen) 1 Each Tablet 1 Tab PO PRN Q6HRS PRN Reported Aspirin 81 Mg Tab.chew 81 Mg PO Flonase Allergy Relief (Fluticasone Propionate) 9.9 Ml [place].susp 2 Sprays NS DAILY Claritin (Loratadine) 10 Mg Tablet 10 Mg PO Citalopram Hbr (Citalopram Hydrobromide) 10 Mg Tablet 10 Mg PO DAILY Lisinopril 40 Mg Tablet 40 Mg PO DAILY Crestor (Rosuvastatin Calcium) 10 Mg Tablet 1 Tab PO DAILY Proair Hfa Inhaler (Albuterol Sulfate) 8.5 Gm Hfa.aer.ad 2 Puff IH PRN Q4-6HRS Flonase (Fluticasone Propionate) 16 Gm [place].susp 2 [place] NS DAILY Lisinopril 5 Mg Tablet 1 Tab PO [id number] Vitals/I & O Vital Sign - Last 24 Hours 02/11/17 02/11/17 02/11/17 02/11/17 17:26 19:38 20:20 23:39 Temp 98.2 98.0 98.2 98.0 Pulse 67 65 Resp 16 16 B/P (MAP) 114/65 (81) 125/63 (83) Pulse Ox 93 91 92 O2 Delivery Room Air Room Air Room Air Room Air 02/12/17 02/12/17 02/12/17 02/12/17 03:59 07:15 08:00 08:50 Temp 98.0 97.5 98.0 97.5 Pulse 76 60 60 Resp 16 18 B/P (MAP) 107/62 (77) 128/76 (93) 128/76 Pulse Ox 98 94 O2 Delivery Room Air Room Air Room Air 02/12/17 02/12/17 02/12/17 09:48 10:32 14:41 Temp 97.4 98.0 97.4 98.0 Pulse 79 69 Resp 18 18 B/P (MAP) 135/62 (86) 124/72 (89) Pulse Ox 94 93 95 O2 Delivery Room Air Room Air Room Air Intake and Output 02/11/17 02/11/17 02/12/17 15:00 23:00 07:00 Intake Total 700 ml 500 ml Balance 700 ml 500 ml JAYSON FREEMAN MD Feb 12, 2017 15:27
--- NOTE | 2017-02-12 17:07 | PDOC ---
PROGRESS NOTES Assessment Assessment Sudden onset dizziness, headache, ataxia, vomiting on 02/10. HTN HLD BERNARDO Obesity. No evidence of acute CVA. RECOMMENDATIONS/PLAN: ASA daily. Lipitor HS. Treat medical diseases. OT/PT. FU with PCP. HISTORY OF THE PRESENT ILLNESS: 66-y-old female patient with above medical diseases had a big dinner over eating on 02/10. She suddenly developed symptoms of dizziness, vertigo, headache, vomiting, unsteadiness, ataxia, off balance to come to the ER on . She stated she had 2 episodes of vertigo in the past 2 years and the 2nd one was several months early but nothing like this severe with more symptoms. PAST MEDICAL HISTORY: CAD, hypertension, hyperlipidemia, asthma. PAST SURGICAL HISTORY: C-sections and hysterectomy. FAMILY HISTORY: Heart disease. SOCIAL HISTORY: Lives with her . Never smoked, no toxic habits. ALLERGIES: NKDA. MEDICATIONS: Refer to MAR REVIEW OF SYSTEMS: Constitutional: Obesity. Head: No recent traumatic brain or head injury. Skin: No edema, or rash. Ear: No infection. Eyes: No vision loss or color blindness. Nose: No bleeding or purulent discharges. Hearing: No hearing decrease. Neck: No injury. Breast: No history of cancer, masses,or discharges. Cardiac: HTN, HLD. Pulmonary: No COPD. GI: No GI ulcer, GI bleeding. Urinary/genital: UTI. Endocrinologic: Obesity. Skeletomuscular: No muscular atrophy, deformity. Neurological: see HP. Psychiatric: Denies drug use/abuse. Otherwise, not [id number] review of systems. PHYSICAL EXAMINATION: General appearance is in subacute distress. HEENT: Normocephalic and nontraumatic. Eyes, nose, ears, and throat are unremarkable. Neck is supple. No lymphadenopathy. No bruits are heard over the carotid artery. No crepitus. Cardiovascular: S1, S2, regular rate and rhythm. Pulmonary: Clear to auscultation bilaterally. Abdomen: Bowel sounds are positive. Abdomen is soft, nontender, and nondistended. Extremities: No rash, lesions, or edema. No restriction of range of motion NEUROLOGICAL EXAMINATION: Awake. Oriented to time, place and person. PERRL. EOMI. CN: no focal findings. Muscle tone: within normal. Muscle strength: 4+ DTR: 1 Plantar reflex: Flexor response bilaterally Gait: not examined in bed. Sensory exam: no abnormal findings. No definitive acute cerebellar signs elicited. F-T-N test fine. Objective Objective Vital Signs Date Time Temp Pulse Resp B/P (MAP) Pulse Ox O2 Delivery O2 Flow Rate FiO2 02/12/17 14:41 98.0 69 18 124/72 (89) 95 Room Air 98.0 Intake and Output 02/12/17 07:00 Intake Total 1200 ml Balance 1200 ml Intake Oral 1200 ml # Voids 8 Vitals Signs Vitals VS - Last 72 Hours, by Label Date Time Temp Pulse Resp B/P (MAP) Pulse Ox O2 Delivery O2 Flow Rate FiO2 02/12/17 14:41 98.0 69 18 124/72 (89) 95 Room Air 98.0 02/12/17 10:32 97.4 79 18 135/62 (86) 93 Room Air 97.4 02/12/17 09:48 94 Room Air 02/12/17 08:50 60 128/76 02/12/17 08:00 Room Air 02/12/17 07:15 97.5 60 18 128/76 (93) 94 Room Air 97.5 02/12/17 03:59 98.0 76 16 107/62 (77) 98 Room Air 98.0 02/11/17 23:39 98.0 65 16 125/63 (83) 92 Room Air 98.0 02/11/17 20:20 Room Air 02/11/17 19:38 98.2 67 16 114/65 (81) 91 Room Air 98.2 02/11/17 17:26 93 Room Air 02/11/17 14:34 98.4 67 18 120/68 (85) 93 Room Air 98.4 02/11/17 12:34 71 147/82 02/11/17 10:38 97.3 71 18 147/82 (103) 94 Room Air 97.3 02/11/17 08:00 Room Air 02/11/17 07:12 97.5 63 19 119/71 (87) 92 Room Air 97.5 Laboratory Laboratory Laboratory Tests Test 02/12/17 05:05 02/12/17 08:10 Sodium Level 139 mmol/L (136-145) Potassium Level 4.7 mmol/L (3.5-5.1) Chloride Level 104 mmol/L (98-107) Carbon Dioxide Level 24 mmol/L (21-32) Anion Gap 11 (6-14) Blood Urea Nitrogen 21 mg/dL (7-20) Creatinine 0.8 mg/dL (0.6-1.0) Estimated GFR (Cockcroft-Gault) 71.8 Glucose Level 96 mg/dL (70-99) Calcium Level 8.2 mg/dL (8.5-10.1) White Blood Count 5.0 x10^3/uL (4.0-11.0) Red Blood Count 4.64 x10^6/uL (3.50-5.40) Hemoglobin 13.7 g/dL (12.0-15.5) Hematocrit 41.9 % (36.0-47.0) Mean Corpuscular Volume 90 fL (79-100) Mean Corpuscular Hemoglobin 30 pg (25-35) Mean Corpuscular Hemoglobin Concent 33 g/dL (31-37) Red Cell Distribution Width 14.1 % (11.5-14.5) Platelet Count 160 x10^3/uL (140-400) Neutrophils (%) (Auto) 59 % (31-73) Lymphocytes (%) (Auto) 25 % (24-48) Monocytes (%) (Auto) 9 % (0-9) Eosinophils (%) (Auto) 7 % (0-3) Basophils (%) (Auto) 1 % (0-3) Neutrophils # (Auto) 2.9 x10^3uL (1.8-7.7) Lymphocytes # (Auto) 1.2 x10^3/uL (1.0-4.8) Monocytes # (Auto) 0.5 x10^3/uL (0.0-1.1) Eosinophils # (Auto) 0.3 x10^3/uL (0.0-0.7) Basophils # (Auto) 0.0 x10^3/uL (0.0-0.2) Microbiology 02/10/17 Urine Culture - Preliminary, Resulted 02/10/17 Urine Culture Result 1 (MARY) - Preliminary, Resulted Medication Medications Current Medications Atorvastatin Calcium (Lipitor) 40 mg QHS PO Last administered on 02/11/17t 20: 14; Start 02/11/17 at 21:00 Enoxaparin Sodium (Lovenox 40mg Syringe) 40 mg Q24H SQ ; Start 02/12/17 at 13: 00 Famotidine (Pepcid) 20 mg BID PO ; Start 02/12/17 at 12:30 Lisinopril (Prinivil) 40 mg DAILY PO ; Start 02/12/17 at 09:00; Stop 02/12/17 at 09:00; Status DC Non-Formulary Medication 2 sprays DAILY NS ; Start 02/12/17 at 09:00; Status UNV Comment Review of Relevant I have reviewed the following items steffi (where applicable) has been applied. DADA VILLA MD Feb 12, 2017 17:07
[2017-02-12 19:35] VITALS: BP 137/72
[2017-02-12] MEDS: ATORVASTATIN CALCIUM 40 MG TABLET. PO SCH (20:14)
[2017-02-12] MEDS: HYDROcodone/APAP 5/325MG 1 TAB TABLET PO PRN (20:15)
[2017-02-12 23:35] VITALS: BP 119/69
[2017-02-13 07:00] VITALS: BP 120/76
[2017-02-13] MEDS: FLUTICASONE 50MCG/NASAL SPRAY 16GM BOTTLE. NS SCH (07:39)
[2017-02-13] MEDS: FAMOTIDINE 20 MG TABLET. PO SCH (07:40)
[2017-02-13] MEDS: CETIRIZINE HCL 10 MG TABLET. PO SCH (07:40)
[2017-02-13] MEDS: ASPIRIN CHEWABLE 81 MG TABLET. PO SCH (07:40)
[2017-02-13] MEDS: CITALOPRAM 10 MG TABLET. PO SCH (07:40)
[2017-02-13] MEDS: NAPROXEN 500 MG TABLET PO SCH (07:40)
[2017-02-13] MEDS: LISINOPRIL 20 MG TABLET PO SCH (07:42)
[2017-02-13 11:00] VITALS: BP 125/81
[2017-02-13] MEDS: ENOXAPARIN 40 MG/0.4 ML SYRINGE. SQ SCH (11:09)
[2017-02-13] MEDS ORDERED: LISI-334 PO (14:38)
--- NOTE | 2017-02-13 18:12 | PDOC ---
PROGRESS NOTES Assessment Assessment Sudden onset dizziness, headache, ataxia, vomiting on 02/10. BPPV? HTN HLD BERNARDO Obesity. No evidence of acute CVA this time. RECOMMENDATIONS/PLAN: ASA daily. Lipitor HS. Treat medical diseases. OT/PT. FU with PCP. HISTORY OF THE PRESENT ILLNESS: 66-y-old female patient with above medical diseases had a big dinner over eating on 02/10. She suddenly developed symptoms of dizziness, vertigo, headache, vomiting, unsteadiness, ataxia, off balance to come to the ER on . She stated she had 2 episodes of vertigo in the past 2 years and the 2nd one was several months early but nothing like this severe with more symptoms. Her symptoms improved since 02/12. PAST MEDICAL HISTORY: CAD, hypertension, hyperlipidemia, asthma. PAST SURGICAL HISTORY: C-sections and hysterectomy. FAMILY HISTORY: Heart disease. SOCIAL HISTORY: Lives with her . Never smoked, no toxic habits. ALLERGIES: NKDA. MEDICATIONS: Refer to MAR REVIEW OF SYSTEMS: Constitutional: Obesity. Head: No recent traumatic brain or head injury. Skin: No edema, or rash. Ear: No infection. Eyes: No vision loss or color blindness. Nose: No bleeding or purulent discharges. Hearing: No hearing decrease. Neck: No injury. Breast: No history of cancer, masses,or discharges. Cardiac: HTN, HLD. Pulmonary: No COPD. GI: No GI ulcer, GI bleeding. Urinary/genital: UTI. Endocrinologic: Obesity. Skeletomuscular: No muscular atrophy, deformity. Neurological: see HP. Psychiatric: Denies drug use/abuse. Otherwise, not [id number] review of systems. PHYSICAL EXAMINATION: General appearance is in subacute distress. HEENT: Normocephalic and nontraumatic. Eyes, nose, ears, and throat are unremarkable. Neck is supple. No lymphadenopathy. No bruits are heard over the carotid artery. No crepitus. Cardiovascular: S1, S2, regular rate and rhythm. Pulmonary: Clear to auscultation bilaterally. Abdomen: Bowel sounds are positive. Abdomen is soft, nontender, and nondistended. Extremities: No rash, lesions, or edema. No restriction of range of motion NEUROLOGICAL EXAMINATION: Awake. Oriented to time, place and person. PERRL. EOMI. CN: no focal findings. Muscle tone: within normal. Muscle strength: 5- DTR: 1 Plantar reflex: Flexor response bilaterally Gait: Able to walk with a walker. Sensory exam: no abnormal findings. No definitive acute cerebellar signs elicited. F-T-N test fine. Objective Objective Vital Signs Date Time Temp Pulse Resp B/P (MAP) Pulse Ox O2 Delivery O2 Flow Rate FiO2 02/13/17 11:00 98.0 66 16 125/81 (96) 97 Room Air 98.0 Intake and Output 02/13/17 07:00 Intake Total 1700 ml Output Total 1200 ml Balance 500 ml Intake Oral 1700 ml Output Urine Total 50 ml Stool Total 1150 ml # Voids 9 # Bowel Movements 3 Vitals Signs Vitals VS - Last 72 Hours, by Label Date Time Temp Pulse Resp B/P (MAP) Pulse Ox O2 Delivery O2 Flow Rate FiO2 02/13/17 11:00 98.0 66 16 125/81 (96) 97 Room Air 98.0 02/13/17 08:00 Room Air 02/13/17 07:42 58 120/76 02/13/17 07:00 97.3 58 18 120/76 (91) 97 Room Air 97.3 02/13/17 03:00 Room Air 02/12/17 23:35 97.9 60 18 119/69 (86) 95 BiPAP/CPAP 97.9 02/12/17 21:19 Room Air 02/12/17 20:15 Room Air 02/12/17 20:00 Room Air 02/12/17 19:35 98.4 68 20 137/72 (93) 94 Room Air 98.4 02/12/17 14:41 98.0 69 18 124/72 (89) 95 Room Air 98.0 02/12/17 10:32 97.4 79 18 135/62 (86) 93 Room Air 97.4 02/12/17 09:48 94 Room Air 02/12/17 08:50 60 128/76 02/12/17 08:00 Room Air 02/12/17 07:15 97.5 60 18 128/76 (93) 94 Room Air 97.5 Laboratory Laboratory Microbiology 02/10/17 Urine Culture - Final, Complete 02/10/17 Urine Culture Result 1 (MARY) - Final, Complete 02/10/17 Urine Culture Result 2 (MARY) - Final, Complete Comment Review of Relevant I have reviewed the following items steffi (where applicable) has been applied. DADA VILLA MD Feb 13, 2017 18:12
--- NOTE | 2017-02-15 15:29 | DS ---
DATE OF DISCHARGE: 02/13/2017 CHIEF COMPLAINT: Vertigo. HOSPITAL COURSE: The patient is a 66-year-old obese woman who presented with sudden onset of dizziness, headache, ataxia and vomiting. She was admitted to the hospital. MRI was obtained under the guidance of Dr. Razo from Neurology. No significant findings on radiographic imaging. Her symptoms spontaneously improved. She was thought to be suffering from benign positional vertigo and treated empirically. With improvement of her symptoms, she was deemed stable for discharge on the . PHYSICAL EXAMINATION: VITAL SIGNS: Show a blood pressure of 125/81, heart rate of 66, respiratory rate at 16. She was afebrile. GENERAL: This is an obese woman, alert and oriented, no acute distress. LUNGS: Clear. HEART: Regular rate and rhythm. ABDOMEN: Positive bowel sounds. EXTREMITIES: No edema. DISCHARGE DIAGNOSIS: Vertigo. DISCHARGE DISPOSITION: To home. DISCHARGE CONDITION: Improved. DISCHARGE MEDICATIONS: Please refer to MAR. DISCHARGE INSTRUCTIONS: Follow up with PCP in 1-2 weeks. BENITEZ ROMERO MD DR: CLARIBEL/nts JOB#: [id number] / [id number] LUKE Ortez MD
== END 2017-02-13 15:33 | disposition home or self-care (01) | DRG 149 ==
LOC: ER 22:07 → 6 SOUTH 02-11 02:32
PROVIDERS: ADMIT Internal Medicine; ATTEND Internal Medicine
DX: R42 Dizziness and giddiness (principal); E66.9 Obesity, unspecified; E78.5 Hyperlipidemia, unspecified; I10 Essential (primary) hypertension; I25.10 Atherosclerotic heart disease of native coronary artery without angina pectoris; R11.10 Vomiting, unspecified; R51 Headache; G47.33 Obstructive sleep apnea (adult) (pediatric); J45.909 Unspecified asthma, uncomplicated; F41.9 Anxiety disorder, unspecified; M19.90 Unspecified osteoarthritis, unspecified site; F31.9 Bipolar disorder, unspecified; E78.00 Pure hypercholesterolemia, unspecified; Z90.710 Acquired absence of both cervix and uterus; Z82.49 Family history of ischemic heart disease and other diseases of the circulatory system; Z98.891 History of uterine scar from previous surgery; Z68.33 Body mass index [BMI] 33.0-33.9, adult
CPT/HCPCS: 36415; 70450; 70551; 80048; 80053; 80307; 81001; 82550; 83735; 84484; 85025; 87086; 93005; 94640; 94760; 96374; 96375; J1650; J2060; J2405; J7613; J8597; 99285-25; G0479

== ENCOUNTER 2018-06-18 15:55 | Emergency (ER) | payer MEDICARE ==
[~2018-06-18] VITALS: Ht 165.1 cm; Wt 90.7 kg
[~2018-06-18 15:55] MED LIST changes: +ALBU2.5V8 IH; -FERR-26 PO; +FERR325T14 PO; -HYDR-2758 PO; +HYDR-2761 PO; +HYDR-3164 PO; -HYDR-971 PO; +LISI-130 PO; +LISI-334 PO; -LISI40TA PO; -PROAIR HFA8.5 GM IH
[2018-06-18 16:08] VITALS: BP 141/76
--- NOTE | 2018-06-18 16:18 | PHYS DOC ---
Past Medical History Past Medical History: Anxiety, Arthritis, Asthma, Bipolar, Bronchitis, Depression, High Cholesterol, Hypertension Additional Past Medical Histor: SLEEP APNEA, VERTIGO, Past Surgical History: , Hysterectomy Alcohol Use: Rarely Drug Use: None Adult General Chief Complaint Chief Complaint: HEAD INJURY/TRAUMA HPI HPI 67-year-old female who stood up and hit the towel rack in a bathroom [place] the [employer] complaining of dizziness lightheadedness. This happened approximate 45 minutes prior to arrival. No alleviating or exacerbating factors. She is not on blood thinners. Review of systems is negative for chest pain shortness of breath palpitations abdominal pain nausea vomiting fevers chills. All other review of systems is negative unless otherwise noted in history of present illness. ED course: 67-year-old female presenting with lightheadedness and dizziness after hitting her head. Head neck CT ordered. EKG obtained and reviewed by myself shows sinus rhythm with a regular rate. ST segments congruent. Not suggestive of ACS. Head and neck imaging is negative. Blood work pending at this time. Patient be signed out at 6 PM with plans to follow-up on lab work and reexamination. Review of Systems Review of Systems SEE ABOVE. Allergies Allergies Allergies Coded Allergies Type Severity Reaction Last Updated Verified corn Allergy Severe Swelling 09/20/15 Yes venom-wasp Allergy Severe Anaphylaxis 09/20/15 Yes Physical Exam Physical Exam SEE ABOVE Constitutional: Well developed, well nourished, no acute distress, non-toxic appearance. [] HENT: Normocephalic, no abrasions, depressed skull fracture or lacerations on examination. Bilateral external ears normal, oropharynx moist, no oral exudates , nose normal. Eyes: PERRLA, EOMI, conjunctiva normal, no discharge. Neck: Normal range of motion, no tenderness, supple, no stridor. [] Cardiovascular:Heart rate regular rhythm, no murmur Lungs & Thorax: Bilateral breath sounds clear to auscultation [] Abdomen: Bowel sounds normal, soft, no tenderness, no masses, no pulsatile masses. Skin: Warm, dry, no erythema, no rash. [] Back: No tenderness, no CVA tenderness. [] Extremities: No tenderness, no cyanosis, no clubbing, ROM intact, no edema. [] Neurologic: Alert and oriented X 3, normal motor function, normal sensory function, no focal deficits noted. [] Psychologic: Affect normal, judgement normal, mood normal. [] Current Patient Data Vital Signs Vital Signs Date Time Temp Pulse Resp B/P (MAP) Pulse Ox O2 Delivery O2 Flow Rate FiO2 06/18/18 16:08 98.5 70 16 141/76 (97) 95 Room Air 98.5 EKG EKG [] Radiology/Procedures Radiology/Procedures [] Course & Med Decision Making Course & Med Decision Making Pertinent Labs and Imaging studies reviewed. (See chart for details) [] Dragon Disclaimer Dragon Disclaimer This electronic medical record was generated, in whole or in part, using a voice recognition dictation system. Departure Departure Impression: Primary Impression: Head injury Referrals: LUKE SIMS MD (PCP) Patient Instructions: Head Injury, Adult MARIELENA VILLANUEVA MD Jun 18, 2018 16:18
--- NOTE | 2018-06-18 16:50 | RAD ---
Head and cervical spine without contrast 06/18/2018 4:19 PM Indication: HEAD INJURY DIZZY Comparison: None available Procedure: Multidetector CT imaging of the head and cervical spine was performed without the administration of contrast. Findings: There is no evidence of acute intracranial hemorrhage. There is no evidence of acute territorial infarction. Please note that CT is limited for evaluation of acute ischemia. No mass effect or midline shift is identified . The ventricles and basilar cisterns have an appropriate appearance. No abnormal extra-axial fluid collections are seen. No acute osseous changes are identified. There is no evidence of acute fracture or alignment abnormality of the cervical spine. The atlantoaxial articulation and craniocervical junction remains intact. Vertebral body heights are grossly maintained. Degenerative disc space narrowing is noted most prominently at C4-C7. There is no abnormal prevertebral soft tissue swelling. No bony compromise of the spinal canal is seen. Impression: 1. No evidence of acute intracranial abnormality 2. Degenerative changes of the cervical spine without evidence of acute fracture or alignment abnormality CT DOSING PQRS STATEMENT: One or more of the following individualized dose reduction techniques were utilized for this examination: 1. Automated exposure control 2. Adjustment of the mA and/or kV according to patient size 3. Use of iterative reconstruction technique Electronically signed by: Gerson Guzmán MD (06/18/2018 4:47 PM) [id number]
[2018-06-18 18:28] LABS: BASO % 1 % (0-3); EOS # 0.3 x10^3/uL (0.0-0.7); EOS % 5 % (0-3); HEMATOCRIT 39.9 % (36.0-47.0); HEMOGLOBIN 13.4 g/dL (12.0-15.5); LYMPH # 1.3 x10^3/uL (1.0-4.8); LYMPH % 25 % (24-48); MEAN CORPUSCULAR HEMOGLOBIN 29 pg (25-35); MEAN CORPUSCULAR HGB CONC 34 g/dL (31-37); MEAN CORPUSCULAR VOLUME 87 fL (79-100); MONO # 0.5 x10^3/uL (0.0-1.1); MONO % 10 % (0-9); NEUT # 3.1 x10^3uL (1.8-7.7); NEUT % 59 % (31-73); PLATELET COUNT 187 x10^3/uL (140-400); WHITE BLOOD COUNT 5.3 x10^3/uL (4.0-11.0)
[2018-06-18 18:38] LABS: CALCIUM 9.3 mg/dL (8.5-10.1); CREATININE 0.9 mg/dL (0.6-1.0); GFR 62.5; POTASSIUM 3.7 mmol/L (3.5-5.1)
[2018-06-18 18:44] LABS: ALBUMIN 3.8 g/dL (3.4-5.0); ALBUMIN/GLOBULIN RATIO 1.3 (1.0-1.7); TOTAL BILIRUBIN 0.9 mg/dL (0.2-1.0); TOTAL PROTEIN 6.8 g/dL (6.4-8.2)
[2018-06-18] MEDS ORDERED: MECL25TA3 PO (20:57)
[2018-06-18] MEDS ORDERED: DEXAMETHASONE 4 MG TABLET PO ONE (21:45)
[2018-06-18] MEDS ORDERED: MECLIZINE HCL 12.5 MG TABLET. PO ONE (21:45)
--- NOTE | 2018-06-19 14:59 | EKG ---
[facility] [address] [place] [address] Test Date: 2018-06-18 Test Time: 16:16:47 Pat Name: CLINTON BURKS Department: Room: Gender: F Utility System Repairer: : 1950 Requested By: CIRILO HESTER Order Number: [id number] Reading MD: Woo Crocker MD Measurements Intervals Moran Rate: 66 P: 64 NE: 166 QRS: -45 QRSD: 82 T: 26 QT: 398 QTc: 419 Interpretive Statements SINUS RHYTHM consider prior inferior infarct NON-SPECIFIC ST/T CHANGES Electronically Signed On 06-22-2018 12:13:21 CDT by Woo Crocker MD
== END 2018-06-18 22:05 | disposition home or self-care (01) ==
LOC: ER 15:55
DX: S09.90XA Unspecified injury of head, initial encounter (principal); R42 Dizziness and giddiness; F31.9 Bipolar disorder, unspecified; F41.9 Anxiety disorder, unspecified; J45.909 Unspecified asthma, uncomplicated; E78.00 Pure hypercholesterolemia, unspecified; I10 Essential (primary) hypertension; Z91.018 Allergy to other foods; Z91.038 Other insect allergy status; W22.8XXA Striking against or struck by other objects, initial encounter; Y93.89 Activity, other specified; Y92.89 Other specified places as the place of occurrence of the external cause; Y99.8 Other external cause status
CPT/HCPCS: 36415; 70450; 72125; 80053; 84484; 85025; 93005; 99285; J8540; J8597

== ENCOUNTER → 2018-07-14 | Outpatient (CLI) | payer MEDICARE ==
[2018-06-18 16:08] VITALS: BP 141/76
[~2018-07-14] MED LIST changes: +MECL25TA3 PO; +REGADENOSON 0.4 MG/5 ML DISP.SYRIN. IV ONE
--- NOTE | 2018-07-14 11:49 | CARD ---
MR#: [id number] Date of Study: 07/14/2018 Ordering Physician: JOSELIN KESSLER, Referring Physician: JOSELIN KESSLER Tech: Yadira Chandler RDCS APPROVED REPORT EXAM: Two-dimensional and M-mode echocardiogram with Doppler and color Doppler. Other Information Quality : AverageHR: 70bpm Rhythm : NSR INDICATION Dyspnea 2D DIMENSIONS RVDd2.4 (2.9-3.5cm)Left Atrium(2D)3.1 (1.6-4.0cm) IVSd1.0 (0.7-1.1cm)Aortic Root(2D)2.8 (2.0-3.7cm) LVDd4.5 (3.9-5.9cm)LVOT Diameter2.1 (1.8-2.4cm) PWd1.0 (0.7-1.1cm)LVDs2.5 (2.5-4.0cm) FS (%) 44.0 %SV68.3 ml M-Mode DIMENSIONS Left Atrium(MM)3.61 (2.5-4.0cm)Aortic Root2.88 (2.2-3.7cm) Aortic Valve AoV Peak Emilio.156.9cm/sAoV VTI28.0cm AO Peak GR.9.8mmHgLVOT Peak Emilio.105.2cm/s AO Mean GR.5mmHgAVA (VMAX)2.29cm2 DAVID (VTI)2.30cm2 Mitral Valve MV E Qjcjoenr37.2cm/sMV E Peak Gr.5mmHg MV DECEL BIWS127xhIR A Xqritjta753.8cm/s MV E Mean Gr.2mmHgE/A Ratio0.8 MV A [id number] Pulmonary Valve PV Peak Gbdhmuig83.1cm/s Pulmonary Vein S1 Cvgaxbxo50.5cm/sD2 Mdyolrvs28.7cm/s PVa [id number] LEFT VENTRICLE The left ventricle is normal size. There is mild to moderate concentric left ventricular hypertrophy. The left ventricular systolic function is normal and the ejection fraction is within normal range. L eft ventricular ejection fraction is 60-65%. There is normal LV segmental wall motion. Transmitral Do ppler flow pattern is Grade I-abnormal relaxation pattern. RIGHT VENTRICLE The right ventricle is normal size. There is normal right ventricular wall thickness. The right ventr icular systolic function is normal. ATRIA The left atrium size is normal. The right atrium size is normal. The interatrial septum is intact wit h no evidence for an atrial septal defect or patent foramen ovale as noted on 2-D or Doppler imaging. AORTIC VALVE The aortic valve is calcified but opens well. The aortic valve is trileaflet. Doppler and Color Flow revealed trace aortic regurgitation. There is no significant aortic valvular stenosis. MITRAL VALVE The mitral valve is thickened but opens well. There is no evidence of mitral valve prolapse. There is no mitral valve stenosis. Doppler and Color-flow revealed trace mitral regurgitation. TRICUSPID VALVE The tricuspid valve is normal in structure and function. Doppler and Color Flow revealed no tricuspid valve regurgitation noted. There is no tricuspid valve prolapse or vegetation. There is no tricuspid valve stenosis. PULMONIC VALVE The pulmonic valve is not well visualized. GREAT VESSELS The aortic root is normal in size. The ascending aorta is normal in size. The IVC is normal in size a nd collapses >50% with inspiration. PERICARDIAL EFFUSION There is no evidence of significant pericardial effusion. Critical Notification Critical Value: No <Conclusion> The left ventricle is normal size. The left ventricular systolic function is normal and the ejection fraction is within normal range. Left ventricular ejection fraction is 60-65%. There is mild to moderate concentric left ventricular hypertrophy. There is no significant aortic valvular stenosis. Doppler and Color Flow revealed trace aortic regurgitation. Doppler and Color-flow revealed trace mitral regurgitation. Doppler and Color Flow revealed no tricuspid valve regurgitation noted. Signed by : Donato Kraus MD Electronically Approved : 07/14/2018 11:49:31
--- NOTE | 2018-07-14 14:25 | RAD ---
MR#: [id number] Date of Study: 07/14/2018 Ordering Physician: JOSELIN KESSLER Referring Physician: DEBI CASIANO Tech: RT Sandor (R) (N) APPROVED REPORT Test Type: Pharmacological Stress Nurse/Tech: Malou LAKHANI RN Test Indications: DYSPNEA ON EXERTION Cardiac History: ASTHMA, HTN, HEART MURMUR Medications: See Electronic Medical Record Medical History: See Electronic Medical Record Resting ECG: SR Resting Heart Rate: 67 bpm Resting Blood Pressure: 122/67mmHg Pretest Chest Pain: None Nurse/Tech Notes lungs CTA, S1S2 murmur noted Consent: The procedure was explained to the patient in lay terms. Informed consent was witnessed. Aryan eout was entered into [employer]. History and Stress Test performed by malou Lakhani RN Pharm. Details Pharmacologic stress testing was performed using 0.4mg per 5ml of regadenoson given intravenously ove r 7-10 seconds. Stress Symptoms Dyspnea POST EXERCISE Reason for Termination: Infusion complete Max HR: 95 bpm Max Blood Pressure: 136/62mmHg Blood Pressure response to exercise: Normal blood pressure response during stress. Heart Rate response to exercise: normal response Chest Pain: No. Arrhythmia: No. ST Change: No. INTERPRETATION Stress EKG Conclusion: The resting EKG shows a sinus rhythm and non specific ST- T wave changes. The stress EKG shows no significant changes from baseline. No EKG evidence of stress induced ischemia. Imaging Protocol IMAGE PROTOCOL: Rest Tc-99m/stress Tc-99m 1 day Rest: Stress: Viability: Radiopharm.Tc99m GhqzupbmcQd03u Sestamibi Dose10.3mCi 33mCi Duration 13min. 13min. Img Date 07/14/2018 07/14/2018 Inj-Img Pkad41zhe. 60min. Rest Admin Site:IV - Left AntecubitalAdministrator:RT Sandor (R)(N) Stress Admin Site: IV - Left AntecubitalAdministrator: MONI Nick STRESS DATA End Diast. Vol.38.0mlLVEDV index BSA19.0ml End Syst. Vol.1.0mlLVESV index BSA0.0ml Myocardial Mass83.0gEject. Dsuzyuxy52.0% Stress Scores Regional WT0.00Summed WT0.00 Regional WM0.00Summed WM0.00 LV Perfusion The stress images show a very slight defect in the anterior wall. The rest images show no significant defects. Nuclear images show no clear reversible ischemia or infarct. Slight anterior wall abnormality on str ess images. Wall Motion Normal LV systolic function with an ejection fraction of greater than 70%. LV Perf. Quant 17 Seg. SSS0.00 17 Seg. SRS0.00 17 Seg. SDS0.00 Stress Defect Extent (% LAD)0.00Rest Defect Extent (% LAD)0.00Rev. Defect Extent (% LAD)0.00 Stress Defect Extent (% LCX) 0.00Rest Defect Extent (% LCX)0.00Rev. Defect Extent (% LCX)0.00 Stress Defect Extent (% RCA)0.00Rest Defect Extent (% RCA)0.00Rev. Defect Extent (% RCA)0.00 Stress Defect Extent (% [place])0.00Rest Defect Extent (% [place])0.00Rev. Defect Extent (% [place])0.00 Conclusion 1. No EKG evidence of stress induced ischemia. 2. Nuclear images show no definite reversible ischemia or infarct. 3. Slight anterior wall abnormality on stress images of uncertain significance. 4. Normal LV function with an ejection fraction of greater than 70%. 5. Moderately low risk Lexiscan stress test. Signed by : Donato Kraus MD Electronically Approved : 07/14/2018 14:24:47
== END | disposition home or self-care (01) ==
LOC: ECHO 07:37
PROVIDERS: ATTEND Internal Medicine Cardiovascular Disease
DX: I35.8 Other nonrheumatic aortic valve disorders (principal); I11.9 Hypertensive heart disease without heart failure; J45.909 Unspecified asthma, uncomplicated
CPT/HCPCS: 78452; 93017; 93306; A9500; J2785

== ENCOUNTER → 2018-12-13 | Outpatient (CLI) | payer MEDICARE ==
[~2018-12-13] MED LIST changes: -REGADENOSON 0.4 MG/5 ML DISP.SYRIN. IV ONE; +ZOLPIDEM 5 MG TABLET. PO ONE
--- NOTE | 2018-12-15 11:42 | SLEEP ---
DATE OF STUDY: 12/13/2018 REFERRING PHYSICIAN: Nadia Juarez APRN. The patient is 68 years old who weighs 201 pounds with a BMI of 33. The patient's [place] score was 18. The patient underwent split night study performed at [facility]. The patient had sleep study 8 years ago and was positive for BERNARDO, but has gained 20 pounds since then and had return of hypersomnia. During the night study, the patient spent 407 minutes in bed and slept for 294 minutes with a sleep efficiency of 72%. Sleep latency was 80 minutes with an absent REM sleep. Sleep architecture showed increased stage 1 and stage 2 sleep, normal slow wave and absent REM sleep. During the initial diagnostic portion of the study, the patient slept for 61 minutes. During that time, there was 1 obstructive apnea, no mixed or central apneas and 41 hypopneas. The patient's apnea-hypopnea index was 41 per hour, supine index of 56 per hour. No REM sleep was observed. EKG monitoring revealed an average heart rate of 63 beats per minute, no sustained arrhythmias observed. Nocturnal oximetry study revealed mean oxygen saturations in the mid to high 80s with the lowest of 80%. No clinically significant PLM seen. The patient met the criteria for CPAP initiation. It was started at 5 cm water and titrated up to 18 cm water. At the final pressure, the patient slept for 68 minutes. The patient's AHI was reduced to only 1 per hour. The patient had supine sleep, but no REM sleep. The patient's oxygen saturation remained above 88%. The patient used a small size full face mask. IMPRESSION: 1. Severe sleep apnea-hypopnea syndrome at an AHI of 41 per hour. 2. Nocturnal hypoxia secondary to obstructive sleep apnea, but resolved with CPAP. 3. No clinically significant periodic limb movements. RECOMMENDATIONS: 1. CPAP at 18 cm water completely eliminated the patient's sleep apnea and should be used on a nightly basis. 2. Follow up in 4-6 weeks to assess compliance with CPAP and to document clinical improvement. 3. Weight loss is advised. 4. Avoid TICKET TAKER FERRYBOAT depressants. 5. Cautioned regarding driving until symptoms of sleep apnea resolve with the use of CPAP. BIANCA MALIK MD DR: ABBEY/wendy JOB#: [id number] / [id number] NADIA Crump APRN
== END | disposition home or self-care (01) ==
LOC: SLPLAB 20:48
PROVIDERS: ATTEND Nurse Practitioner Family
DX: G47.33 Obstructive sleep apnea (adult) (pediatric) (principal); G47.34 Idiopathic sleep related nonobstructive alveolar hypoventilation
CPT/HCPCS: 95810

== ENCOUNTER → 2019-02-01 | Outpatient (CLI) | payer MEDICARE ==
[~2019-02-01] MED LIST changes: -ZOLPIDEM 5 MG TABLET. PO ONE
--- NOTE | 2019-02-01 11:15 | RAD ---
MR#: [id number] Date of Study: 02/01/2019 Ordering Physician: JOSELIN KESSLER, Referring Physician: JOSELIN KESSLER, Tech: Major Gilbert MBA, RDMS, RVT, RDCS, RTR APPROVED REPORT Patient Location : OUT-PATIENT Indications restless legs Findings Grayscale images of the bilateral saphenofemoral junctions, greater and lesser saphenous veins are gr ossly unremarkable. The right great saphenous vein measures 4.3 mm and the left great saphenous vein measures 5.5 mm. The bilateral greater and lesser saphenous veins do not show any evidence of reflux. Critical Notification Critical Value: No <Conclusion> 1. No significant reflux. Signed by : Woo Crocker, Electronically Approved : 02/01/2019 11:15:26
== END | disposition home or self-care (01) ==
LOC: US 10:05
PROVIDERS: ATTEND Internal Medicine Cardiovascular Disease
DX: G25.81 Restless legs syndrome (principal); K21.9 Gastro-esophageal reflux disease without esophagitis
CPT/HCPCS: 93970

== ENCOUNTER 2019-03-03 17:57 | Emergency (ER) | payer MEDICARE ==
[~2019-03-03] VITALS: Ht 165.1 cm; Wt 90.7 kg
[~2019-03-03 17:57] MED LIST changes: +MECL-75 PO; -MECL25TA3 PO
--- NOTE | 2019-03-03 19:32 | PHYS DOC ---
Past Medical History Past Medical History: Anxiety, Arthritis, Asthma, Bipolar, Bronchitis, De pression, High Cholesterol, Hypertension Additional Past Medical Histor: SLEEP APNEA, VERTIGO, Past Surgical History: , Hysterectomy Alcohol Use: Rarely Drug Use: None Adult General Chief Complaint Chief Complaint: SHOULDER INJURY HPI HPI 68-year-old female presents to the emergency department with complaints of left shoulder pain. Patient states she was startled by her last night he jerked the door and subsequently she had injury at that time complained of pain since then. She denies any chest pain, nausea, vomiting, headache, visual change. Movements make her pain worse. Pain has been ongoing for greater than 24 hours. Review of Systems Review of Systems Constitutional: Denies fever or chills [] Respiratory: Denies cough or shortness of breath [] Cardiovascular: No additional information not addressed in HPI [] GI: Denies abdominal pain, nausea, vomiting, bloody stools or diarrhea [] Musculoskeletal: left shoulder pain Neurologic: Denies headache, focal weakness or sensory changes [] All other systems were reviewed and found to be within normal limits, except as documented in this note. Allergies Allergies Allergies Coded Allergies Type Severity Reaction Last Updated Verified corn Allergy Severe Swelling 09/20/15 Yes venom-wasp Allergy Severe Anaphylaxis 09/20/15 Yes Physical Exam Physical Exam Constitutional: Well developed, well nourished, no acute distress, non-toxic appearance. [] HENT: Normocephalic, atraumatic, bilateral external ears normal, oropharynx moist, no oral exudates, nose normal. [] Eyes: PERRLA, EOMI, conjunctiva normal, no discharge. [] Neck: Normal range of motion, no tenderness, supple, no stridor. [] Cardiovascular:Heart rate regular rhythm, no murmur [] Lungs & Thorax: Bilateral breath sounds clear to auscultation [] Abdomen: Bowel sounds normal, soft, no tenderness, no masses, no pulsatile masses. [] Skin: Warm, dry, no erythema, no rash. [] Extremities: No tenderness, no edema, shoulder pain with movements, no deformity[] Neurologic: Alert and oriented X 3, no focal deficits noted. [] Psychologic: Affect normal, judgement normal, mood normal. [] Current Patient Data Vital Signs Vital Signs Date Time Temp Pulse Resp B/P (MAP) Pulse Ox O2 Delivery O2 Flow Rate FiO2 1/2/20 19:08 98.5 76 18 147/74 (98) 93 Room Air 98.5 EKG EKG [] Radiology/Procedures Radiology/Procedures [facility] [address] [place] [address] IMAGING REPORT Signed PATIENT: CLINTON BURKS ACCOUNT: [id number] : 1950 LOCATION: ER AGE: 68 SEX: F EXAM STATUS: REG ER ORD. PHYSICIAN: JASON GALLARDO MD REASON: shoulder pain PROCEDURE: SHOULDER 2+V LEFT Left shoulder the views portable at 1948: Reason for examination: Shoulder pain. No acute fracture or dislocation is seen. The bone density is normal. No abnormal periosteal reaction is seen. Joint spaces are maintained. There are some mild degenerative changes at the acromial clavicular and acromial humeral joint spaces. IMPRESSION: Mild degenerative changes. No acute abnormality evident at the left shoulder. Electronically signed by: Angelica Blas MD (03/03/2019 8:05 PM) [facility] DICTATED and SIGNED BY: ANGELICA BLAS MD DATE: 03/03/192004 [] Course & Med Decision Making Course & Med Decision Making Pertinent Labs and Imaging studies reviewed. (See chart for details) []68-year-old female presents to the emergency department with complaints of left shoulder pain. Patient states she was startled by her last night he jerked the door and subsequently she had injury at that time complained of pain since then. She denies any chest pain, nausea, vomiting, headache, visual change. Movements make her pain worse. Pain has been ongoing for greater than 24 hours. Shoulder pain with xray negative, no acute process identified Recommend dc home Follow up with PCP as needed Tylenol/Motrin as needed for pain Return precautions provided Eugene Disclaimer Dragon Disclaimer This electronic medical record was generated, in whole or in part, using a voice recognition dictation system. Departure Departure Impression: Primary Impression: Shoulder injury Disposition: HOME, SELF-CARE Condition: STABLE Referrals: KLAUS LUKE APRN (PCP) Patient Instructions: Shoulder Pain, [id number] Additional Instructions: Recommend follow up with PCP 3 - 5 days Return to the ER with worsening symptoms, intractable pain, fever, altered mental status Tylenol/Motrin as needed for pain Xray left shoulder without evidence of acute findings, no fracture appreciated Problem Qualifiers Primary Impression: Shoulder injury Encounter type: initial encounter Laterality: left Qualified Codes: S49.92XA - Unspecified injury of left shoulder and upper arm, initial encounter JASON GALLARDO MD Mar 03, 2019 19:32
--- NOTE | 2019-03-03 20:09 | RAD ---
Left shoulder the views portable at 1948: Reason for examination: Shoulder pain. No acute fracture or dislocation is seen. The bone density is normal. No abnormal periosteal reaction is seen. Joint spaces are maintained. There are some mild degenerative changes at the acromial clavicular and acromial humeral joint spaces. IMPRESSION: Mild degenerative changes. No acute abnormality evident at the left shoulder. Electronically signed by: Angelica José MD (03/03/2019 8:05 PM) [facility]
[2019-03-03 20:42] VITALS: BP 126/67
== END 2019-03-03 20:56 | disposition home or self-care (01) ==
LOC: ER 17:57
DX: S49.92XA Unspecified injury of left shoulder and upper arm, initial encounter (principal); J45.909 Unspecified asthma, uncomplicated; F31.9 Bipolar disorder, unspecified; E78.00 Pure hypercholesterolemia, unspecified; I10 Essential (primary) hypertension; Z91.038 Other insect allergy status; Z91.018 Allergy to other foods; X58.XXXA Exposure to other specified factors, initial encounter; Y93.89 Activity, other specified; Y92.89 Other specified places as the place of occurrence of the external cause; Y99.8 Other external cause status
CPT/HCPCS: 73030; 99284

== ENCOUNTER → 2020-02-13 | Outpatient (CLI) | payer MEDICARE ==
[~2020-02-13] MED LIST changes: +MULT-445 PO; -MULT1TAB52 PO
--- NOTE | 2020-02-13 12:18 | CARD ---
MR#: [id number] Date of Study: 02/13/2020 Ordering Physician: JOSELIN KESSLER, Referring Physician: JOSELIN KESSLER Tech: Marlee Resendiz RDCS APPROVED REPORT EXAM: Two-dimensional and M-mode echocardiogram with Doppler and color Doppler. Other Information Quality : Good INDICATION Hypertension/HCVD 2D DIMENSIONS RVDd2.5 (2.9-3.5cm)Left Atrium(2D)3.0 (1.6-4.0cm) IVSd1.0 (0.7-1.1cm)Aortic Root(2D)3.2 (2.0-3.7cm) LVDd5.0 (3.9-5.9cm)LVOT Diameter2.1 (1.8-2.4cm) PWd1.1 (0.7-1.1cm)LVDs2.6 (2.5-4.0cm) FS (%) 30.0 %SV93.8 ml LVEF(%)60.0 (>50%) Aortic Valve AoV Peak Emilio.159.5cm/sAoV VTI29.2cm AO Peak GR.10.2mmHgLVOT Peak Emilio.112.2cm/s AO Mean GR.5mmHgAVA (VMAX)2.53cm2 DAVID (VTI)2.83wt2TQ P 1/2 Eewl076ir Mitral Valve MV E Kdsbrnaz11.8cm/sMV DECEL LIQE125rz MV A Bgzegoat12.2cm/sE/A Ratio0.9 Pulmonary Vein S1 Azlvucbl39.8cm/sD2 Surhnxgx27.4cm/s LEFT VENTRICLE The left ventricle is normal size. There is normal left ventricular wall thickness. The left ventricu lar systolic function is normal and the ejection fraction is within normal range. The Ejection Fracti on is 55-60%. There is normal LV segmental wall motion. Transmitral Doppler flow pattern is Grade I-a bnormal relaxation pattern. RIGHT VENTRICLE The right ventricle is normal size. The right ventricular systolic function is normal. ATRIA The left atrium size is normal. The right atrium size is normal. The interatrial septum is intact wit h no evidence for an atrial septal defect or patent foramen ovale as noted on 2-D or Doppler imaging. AORTIC VALVE The aortic valve is calcified but opens well. Doppler and Color Flow revealed mild eccentric aortic r egurgitation. There is no significant aortic valvular stenosis. MITRAL VALVE The mitral valve is calcified but opens well. Mitral annular calcification is mild. There is no evide nce of mitral valve prolapse. There is no mitral valve stenosis. Doppler and Color-flow revealed trac e mitral regurgitation. TRICUSPID VALVE The tricuspid valve is normal in structure and function. Doppler and Color Flow revealed no tricuspid valve regurgitation noted. There is no tricuspid valve stenosis. PULMONIC VALVE The pulmonic valve is not well visualized. Doppler and Color Flow revealed no pulmonic valvular regur gitation. There is no pulmonic valvular stenosis. GREAT VESSELS The aortic root is normal in size. The ascending aorta is normal in size. The IVC is normal in size a nd collapses >50% with inspiration. PERICARDIAL EFFUSION There is no evidence of significant pericardial effusion. Critical Notification Critical Value: No <Conclusion> The left ventricle is normal size. The left ventricular systolic function is normal and the ejection fraction is within normal range. The Ejection Fraction is 55-60%. There is normal LV segmental wall motion. Doppler and Color Flow revealed mild eccentric aortic regurgitation. There is no significant aortic valvular stenosis. Doppler and Color-flow revealed trace mitral regurgitation. Doppler and Color Flow revealed no tricuspid valve regurgitation noted. Signed by : Donato Kraus MD Electronically Approved : 02/13/2020 12:17:35
== END ==
LOC: ECHO 11:02
PROVIDERS: ATTEND Internal Medicine Cardiovascular Disease
DX: I08.0 Rheumatic disorders of both mitral and aortic valves (principal); I10 Essential (primary) hypertension
CPT/HCPCS: 93306

== ENCOUNTER 2020-05-06 14:20 | Emergency (ER) | payer MEDICARE ==
[~2020-05-06] VITALS: Ht 165.1 cm; Wt 90.9 kg
[~2020-05-06 14:20] MED LIST changes: -LISI-334 PO; -LISI-338 PO; +LISI-517 PO; +LISI20TA18 PO
--- NOTE | 2020-05-06 14:52 | PHYS DOC ---
Past Medical History Past Medical History: Anxiety, Arthritis, Asthma, Bipolar, Bronchitis, De pression, High Cholesterol, Hypertension Additional Past Medical Histor: SLEEP APNEA, VERTIGO, Past Surgical History: , Hysterectomy Smoking Status: Never Smoker Alcohol Use: None Drug Use: None General Adult EDM: Chief Complaint: NEAR SYNCOPE HPI: HPI: Patient is a 69 year old female with history of anxiety, bipolar, depression, high cholesterol, hypertension, who presents to the ED today from [facility] after experiencing a near syncope episode. Patient states she has chronic constipation, she states she used the bathroom at the store twice, the first time she urinated then went back to the bathroom and this time had a bowel movement, she states she unfortunately bared down so had that she almost passed out. She states she walked out of the bathroom and got help from some of the store employees and laid down on the floor. Review of Systems: Review of Systems: Constitutional: Denies fever or chills. [] Eyes: Denies change in visual acuity. [] HENT: Denies nasal congestion or sore throat. [] Respiratory: Denies cough or shortness of breath. [] Cardiovascular: Denies chest pain or edema. [] GI: Reports constipation. Denies abdominal pain, nausea, vomiting, bloody stools or diarrhea. [] : Denies dysuria. [] Musculoskeletal: Denies back pain or joint pain. [] Integument: Denies rash. [] Neurologic: Reports near syncope episode. Denies headache, focal weakness or sensory changes. [] . [] Psychiatric: Denies depression or anxiety. [] Heart Score: C/O Chest Pain: N/A Risk Factors: Risk Factors: DM, Current or recent (<one month) smoker, HTN, HLP, family history of CAD, obesity. Risk Scores: Score 0 - 3: 2.5% MACE over next 6 weeks - Discharge Home Score 4 - 6: 20.3% MACE over next 6 weeks - Admit for Clinical Observation Score 7 - 10: 72.7% MACE over next 6 weeks - Early Invasive Strategies Current Medications: Current Medications Medications (Trade) Dose Ordered Sig/Niki Start Time Stop Time Status Last Admin Dose Admin Meclizine HCl (Antivert) 12.5 mg 1X ONCE 05/06/20 15:00 05/06/20 15:01 Sodium Chloride 1,000 ml @ 1,000 mls/hr 1X ONCE 05/06/20 15:00 05/06/20 15:59 Allergies: Allergies: Allergies Coded Allergies Type Severity Reaction Last Updated Verified corn Allergy Severe Swelling 09/20/15 Yes venom-wasp Allergy Severe Anaphylaxis 09/20/15 Yes Physical Exam: PE: Constitutional: Well developed, well nourished, no acute distress, non-toxic appearance. [] HENT: Normocephalic, atraumatic, bilateral external ears normal, oropharynx moist, no oral exudates, nose normal. [] Eyes: PERRLA, EOMI, conjunctiva normal, no discharge. [] Neck: Normal range of motion, no tenderness, supple, no stridor. [] Cardiovascular:Heart rate regular rhythm, no murmur [] Lungs & Thorax: Bilateral breath sounds clear to auscultation [] Abdomen: Rounded abdomen. Bowel sounds normal, soft, no tenderness, no masses, no pulsatile masses. [] Skin: Warm, dry, no erythema, no rash. [] Back: No tenderness, no CVA tenderness. [] Extremities: No tenderness, no cyanosis, no clubbing, ROM intact, no edema. [] Neurologic: Alert and oriented X 3, normal motor function, normal sensory function, no focal deficits noted. Cranial nerves II through XII intact Psychologic: Very talkative Current Patient Data: Vital Signs: Vital Signs Date Time Temp Pulse Resp B/P (MAP) Pulse Ox O2 Delivery O2 Flow Rate FiO2 05/06/20 14:26 98.2 66 22 139/64 (89) 96 Room Air 98.2 EKG: EK interpreted by DR. Morillo Sinus rhythm HR 68 no STEMI[] Radiology/Procedures: Radiology/Procedures: []PROCEDURE: ACUTE ABDOMEN SERIES Acute Abdominal Series: Technique: PA view of the chest and supine and upright views of the abdomen were obtained. History: Pain. Comparison: None. Findings: The lungs and pleural margins are clear. There is air and stool scattered throughout the colon. There is a paucity small bowel gas. There is no free air. Impression: Nonobstructive bowel gas pattern suggesting constipation. Electronically signed by: Vince Burr III, MD (05/06/2020 3:25 PM) [id number] DICTATED and SIGNED BY: VINCE BURR III, MD DATE: 05/06/20 [id number] PROCEDURE: CT HEAD WO CONTRAST PQRS Compliance Statement: One or more of the following individualized dose reduction techniques were utilized for this examination: 1. Automated exposure control 2. Adjustment of the mA and/or kV according to patient size 3. Use of iterative reconstruction technique CT head without contrast 05/06/2020 3:21 PM INDICATION: Presyncope COMPARISON: CT head 06/18/2018 TECHNIQUE: Multiple axial CT images of the head were obtained from skull base through the vertex without intravenous contrast. FINDINGS: Head: Ventricles, sulci and basal cisterns are within normal limits. Low-attenuation in the periventricular white matter is suggestive of chronic small vessel ischemic changes. There is a remote lacunar infarct in the anterior limb of the left internal capsule. There is no hydrocephalus. Sheth-white matter differentiation is normal. There is no acute intracranial hemorrhage. There is no mass, mass effect or midline shift. Posterior fossa is normal in appearance. Visualized portions of the orbits are normal. Paranasal sinuses are well aerated. Mastoid air cells are well aerated. Scalp and calvaria are normal. IMPRESSION: No acute intracranial hemorrhage. Low-attenuation in the periventricular white matter is suggestive of chronic small vessel ischemic changes. Findings are not significantly changed since prior examination. Suspect a remote lacunar infarct in the anterior limb left internal capsule, stable. Electronically signed by: Alhaji Triplett MD (05/06/2020 3:39 PM) [facility] DICTATED and SIGNED BY: ALHAJI TRIPLETT MD DATE: 05/06/20 [id number] Course & Med Decision Making: Course & Med Decision Making Pertinent Labs and Imaging studies reviewed. (See chart for details) This is a 69-year-old female patient presenting to the ED today with a near syncope episode. She states she is having a bowel movement and beared down so hard that she almost passed out. She has history of constipation and rectal hemorrhoids. EKG is negative for any acute findings, acute abdominal series noted for constipation. CBC CMP with no acute findings, troponin is normal. UA is grossly contaminated with squamous cells epithelium. CT of the head noted for an old lacunar otherwise no acute findings. Discharge to home. We talked about constipation management. Recommended following up with PCP as well. Eugene Disclaimer: Eugene Disclaimer: This electronic medical record was generated, in whole or in part, using a voice recognition dictation system. Departure Departure Impression: Primary Impression: Constipation Qualified Codes: K59.00 - Constipation, unspecified Additional Impression: Near syncope Disposition: 01 DC HOME SELF CARE/HOMELESS Condition: STABLE Referrals: KLAUS LUKE APRN (PCP) follow up with your doctor in the course of this week Patient Instructions: Constipation, Adult, Near-Syncope, Ffzb-kg-Clsp Additional Instructions: You were evaluated in the emergency room after having a near syncope event. Please follow-up with your primary care doctor. Please consider taking dtmz-qiq-wqhyffj remedies for constipation. You can take magnesium citrate 1 bottle whenever you are constipated. Take MiraLAX and docusate sodium daily to prevent constipation. Increase your dietary fiber intake as well as your water intake Scripts Hydrocortisone (ANUSOL-HC) 30 Gm Cream..g. 1 SUSANNE TP TID for 10 Days, #30 GM 0 Refills Prov: JOSIAH MILLER APRN 05/06/20 Polyethylene Glycol 3350 (MIRALAX) 119 Gm Powder 17 GM PO DAILY for constipation, #255 GM 0 Refills dissolve in water Prov: JOSIAH MILLER APRN 05/06/20 JOSIAH MILLER APRN May 06, 2020 14:52
[2020-05-06] MEDS ORDERED: MECLIZINE HCL 12.5 MG TABLET. PO ONE (15:00)
[2020-05-06] MEDS ORDERED: IV NORMAL SALINE 1000ML BAG 1,000 ML IV ONE (15:00)
[2020-05-06 15:16] LABS: CALCIUM 9.1 mg/dL (8.5-10.1); CREATININE 1.1 mg/dL (0.6-1.0); GFR 49.2
[2020-05-06 15:22] LABS: ALBUMIN 3.7 g/dL (3.4-5.0); ALBUMIN/GLOBULIN RATIO 1.2 (1.0-1.7); TOTAL PROTEIN 6.7 g/dL (6.4-8.2)
--- NOTE | 2020-05-06 15:28 | RAD ---
Acute Abdominal Series: Technique: PA view of the chest and supine and upright views of the abdomen were obtained. History: Pain. Comparison: None. Findings: The lungs and pleural margins are clear. There is air and stool scattered throughout the colon. There is a paucity small bowel gas. There is no free air. Impression: Nonobstructive bowel gas pattern suggesting constipation. Electronically signed by: Franklin Ramirez III, MD (05/06/2020 3:25 PM) [id number]
[2020-05-06 15:41] LABS: BASO # 0.1 x10^3/uL (0.0-0.2); BASO % 1 % (0-3); EOS # 0.3 x10^3/uL (0.0-0.7); EOS % 4 % (0-3); HEMATOCRIT 37.2 % (36.0-47.0); HEMOGLOBIN 12.7 g/dL (12.0-15.5); LYMPH # 0.8 x10^3/uL (1.0-4.8); LYMPH % 12 % (24-48); MEAN CORPUSCULAR HEMOGLOBIN 30 pg (25-35); MEAN CORPUSCULAR HGB CONC 34 g/dL (31-37); MEAN CORPUSCULAR VOLUME 88 fL (79-100); MONO # 0.5 x10^3/uL (0.0-1.1); MONO % 7 % (0-9); NEUT # 5.1 x10^3/uL (1.8-7.7); NEUT % 76 % (31-73); PLATELET COUNT 180 x10^3/uL (140-400); RED BLOOD COUNT 4.25 x10^6/uL (3.50-5.40); RED CELL DISTRIBUTION WIDTH 14.1 % (11.5-14.5); WHITE BLOOD COUNT 6.7 x10^3/uL (4.0-11.0)
--- NOTE | 2020-05-06 15:41 | RAD ---
PQRS Compliance Statement: One or more of the following individualized dose reduction techniques were utilized for this examinat ion: 1. Automated exposure control 2. Adjustment of the mA and/or kV according to patient size 3. Use of iterative reconstruction technique CT head without contrast 05/06/2020 3:21 PM INDICATION: Presyncope COMPARISON: CT head 06/18/2018 TECHNIQUE: Multiple axial CT images of the head were obtained from skull base through the vertex with out intravenous contrast. FINDINGS: Head: Ventricles, sulci and basal cisterns are within normal limits. Low-attenuation in the periventricular white matter is suggestive of chronic small vessel ischemic changes. There is a remote lacunar infar ct in the anterior limb of the left internal capsule. There is no hydrocephalus. Sheth-white matter di fferentiation is normal. There is no acute intracranial hemorrhage. There is no mass, mass effect or midline shift. Posterior fossa is normal in appearance. Visualized portions of the orbits are normal. Paranasal sinuses are well aerated. Mastoid air cells a re well aerated. Scalp and calvaria are normal. IMPRESSION: No acute intracranial hemorrhage. Low-attenuation in the periventricular white matter is suggestive of chronic small vessel ischemic ch anges. Findings are not significantly changed since prior examination. Suspect a remote lacunar infarct in the anterior limb left internal capsule, stable. Electronically signed by: Hansa Scott MD (05/06/2020 3:39 PM) [facility]
--- NOTE | 2020-05-06 15:59 | EKG ---
[facility] [address] [place] [address] Test Date: 2020-05-06 Test Time: 14:36:31 Pat Name: CLINTON BURKS Department: Room: Gender: F [employer] Manager: : 1950 Requested By: JOSIAH MILLER Order Number: [id number] Reading MD: Measurements Intervals [place] Rate: 68 P: 62 [place]: 154 QRS: -53 QRSD: 88 T: 48 QT: 392 QTc: 422 Interpretive Statements SINUS RHYTHM ABNORMAL LEFT AXIS DEVIATION R-S TRANSITION ZONE IN V LEADS DISPLACED TO THE LEFT LEFT ANTERIOR FASCICULAR BLOCK ABNORMAL ECG RI6.01 No previous ECG available for comparison
[2020-05-06] MEDS ORDERED: BISACODYL 5 MG TABLET.DR. PO STA (16:10)
[2020-05-06] MEDS ORDERED: MAGNESIUM CITRATE 296 ML SOLUTION. PO ONE (16:30)
[2020-05-06 16:45] LABS: BILIRUBIN,URINE NEGATIVE (NEG); COLOR,URINE YELLOW; NITRITE,URINE NEGATIVE (NEG); PROTEIN,URINE NEGATIVE (NEG-TRACE); UROBILINOGEN,URINE 0.2 mg/dL (0.2 mg/dL)
[2020-05-06 16:50] LABS: BARBITURATES NEG (NEG); BENZODIAZEPINES NEG (NEG); CANNABINOIDS NEG (NEG); COCAINE NEG (NEG); METHADONE NEG (NEG); OPIATES NEG (NEG); PHENCYCLIDINE NEG (NEG)
[2020-05-06 16:51] LABS: AMPHETAMINE/METHAMPHETAMINE NEG (NEG)
[2020-05-06 16:53] LABS: BACTERIA,URINE FEW /HPF (0-FEW); CLARITY,URINE CLEAR
[2020-05-06 16:54] LABS: RBC,URINE 0 /HPF (0-2); WBC,URINE OCC /HPF (0-4)
[2020-05-06 17:27] VITALS: BP 164/79
[2020-05-06] MEDS ORDERED: HYDR30CR61 TP (17:27)
[2020-05-06] MEDS ORDERED: POLY119P4 PO (17:27)
== END 2020-05-06 17:53 | disposition home or self-care (01) ==
LOC: ER 14:20
DX: K59.00 Constipation, unspecified (principal); R55 Syncope and collapse; F41.9 Anxiety disorder, unspecified; M19.90 Unspecified osteoarthritis, unspecified site; J45.909 Unspecified asthma, uncomplicated; F32.9 Major depressive disorder, single episode, unspecified; E78.00 Pure hypercholesterolemia, unspecified; I10 Essential (primary) hypertension; Z90.710 Acquired absence of both cervix and uterus; Z98.890 Other specified postprocedural states; Z91.018 Allergy to other foods
CPT/HCPCS: 36415; 70450; 74022; 80053; 80307; 81001; 83690; 83735; 83880; 84443; 84484; 85025; 87086; 93005; 96360; 99285; J7030; J8597

== ENCOUNTER → 2021-02-18 | Outpatient (CLI) | payer MEDICARE ==
[~2021-02-18] MED LIST changes: -CITA10TA4 PO; +CITA10TA5 PO; +HYDR30CR61 TP; -LISI-517 PO; +LISI5TAB15 PO; +POLY119P4 PO
--- NOTE | 2021-02-18 16:08 | CARD ---
MR#: [id number] Date of Study: 02/18/2021 Ordering Physician: JOSELIN KESSLER, Referring Physician: JOSELIN KESSLER, Tech: Laurel Bonds [facility] APPROVED REPORT EXAM: Two-dimensional and M-mode echocardiogram with Doppler and color Doppler. Other Information Quality : AverageHR: 64bpm INDICATION Dyspnea RISK FACTORS Hypertension Hyperlipidemia Asthma 2D DIMENSIONS RVDd2.5 (2.9-3.5cm)Left Atrium(2D)3.1 (1.6-4.0cm) IVSd1.3 (0.7-1.1cm)Aortic Root(2D)3.2 (2.0-3.7cm) LVDd5.0 (3.9-5.9cm)LVOT Diameter2.1 (1.8-2.4cm) PWd1.1 (0.7-1.1cm)LVDs3.1 (2.5-4.0cm) FS (%) 38.4 %SV80.1 ml Aortic Valve AoV Peak Emilio.156.8cm/sAoV VTI31.0cm AO Peak GR.9.8mmHgLVOT Peak Emilio.121.7cm/s LVOT VTI 25.87cmAO Mean GR.5mmHg DAVID (VMAX)1.23oc3SQG (VTI)2.76cm2 AI P 1/2 Pbcp138ov Mitral Valve MV E Uzbxbofe10.8cm/sMV DECEL [id number] MV A Ukggukpr976.1cm/sMV E Mean Gr.2mmHg MV [id number]/A Ratio0.8 MVA (PHT)2.86cm2 TDI E/Lateral E'12.7E/Medial E'12.1 Pulmonary Valve PV Peak Adwfzccy56.6cm/sPV Peak Grad.3mmHg Pulmonary Vein S1 Jbzgfmir27.8cm/sD2 Ohrwthrh18.8cm/s PVa [id number] LEFT VENTRICLE The left ventricle is normal size. There is mild concentric left ventricular hypertrophy. The left ve ntricular systolic function is normal and the ejection fraction is within normal range. The Ejection Fraction is 55-60%. There is normal LV segmental wall motion. Transmitral Doppler flow pattern is Gra de I-abnormal relaxation pattern. RIGHT VENTRICLE The right ventricle is normal size. There is normal right ventricular wall thickness. The right ventr icular systolic function is normal. ATRIA The left atrium size is normal. The right atrium size is normal. The interatrial septum is intact wit h no evidence for an atrial septal defect or patent foramen ovale as noted on 2-D or Doppler imaging. AORTIC VALVE The aortic valve is normal in structure and function. Doppler and Color Flow revealed trace aortic re gurgitation. There is no significant aortic valvular stenosis. Calculated aortic valve area is 2.94 c m2 with maximum pressure gradient of 11 mmHg and mean pressure gradient of 6 mmHg. MITRAL VALVE The mitral valve is normal in structure and function. There is no evidence of mitral valve prolapse. There is no mitral valve stenosis. Doppler and Color-flow revealed trace mitral regurgitation. TRICUSPID VALVE The tricuspid valve is normal in structure and function. Doppler and Color Flow revealed no tricuspid valve regurgitation noted. There is no tricuspid valve stenosis. PULMONIC VALVE The pulmonic valve is not well visualized. Doppler and Color Flow revealed no pulmonic valvular regur gitation. GREAT VESSELS The aortic root is normal in size. The ascending aorta is normal in size. The IVC is normal in size a nd collapses >50% with inspiration. PERICARDIAL EFFUSION There is no evidence of significant pericardial effusion. Critical Notification Critical Value: No <Conclusion> The left ventricle is normal size. The left ventricular systolic function is normal and the ejection fraction is within normal range. The Ejection Fraction is 55-60%. There is mild concentric left ventricular hypertrophy. Doppler and Color Flow revealed trace aortic regurgitation. There is no significant aortic valvular stenosis. Doppler and Color-flow revealed trace mitral regurgitation. Doppler and Color Flow revealed no tricuspid valve regurgitation noted. Signed by : Donato Kraus MD Electronically Approved : 02/18/2021 16:07:28
== END ==
LOC: ECHO 12:49
PROVIDERS: ATTEND Internal Medicine Cardiovascular Disease
DX: R06.09 Other forms of dyspnea (principal)
CPT/HCPCS: 93306